=== PATIENT | female | born 1965 | race Caucasian/White ===

== ENCOUNTER 2020-08-05 06:10 | Outpatient (REF) | payer OTHER, SELFPAY ==
[2020-08-05 06:48] LABS: COVID-19 Test Negative (Negative)
== END 2020-08-05 06:11 | disposition home or self-care (01) ==
LOC: HO.LAB 06:10
PROVIDERS: Visit Provider Internal Medicine
DX: Z20.828 Contact with and (suspected) exposure to other viral communicable diseases (principal)
CPT/HCPCS: 87635

== ENCOUNTER 2020-09-20 08:33 | Outpatient (REF) | payer OTHER, SELFPAY ==
[2020-09-20 08:56] LABS: COVID-19 Test Negative (Negative)
== END 2020-09-20 08:34 | disposition home or self-care (01) ==
LOC: HO.EMPCOV 08:33
PROVIDERS: Visit Provider Internal Medicine
DX: Z20.828 Contact with and (suspected) exposure to other viral communicable diseases (principal)
CPT/HCPCS: 87635; C9803

== ENCOUNTER 2020-10-06 15:26 | Outpatient (REF) | payer OTHER, SELFPAY ==
[2020-10-06 17:09] LABS: COVID-19 Test Negative (Negative); IDNOW Serial# 55D5AD1C
== END 2020-10-06 15:27 | disposition home or self-care (01) ==
LOC: HO.LAB 15:26
PROVIDERS: Visit Provider Internal Medicine
DX: Z20.828 Contact with and (suspected) exposure to other viral communicable diseases (principal)
CPT/HCPCS: 87635; C9803

== ENCOUNTER 2020-10-21 09:54 | Outpatient (REF) | payer OTHER, SELFPAY ==
[2020-10-21 10:15] LABS: COVID-19 Test Negative (Negative)
== END 2020-10-21 09:55 | disposition home or self-care (01) ==
LOC: HO.EMPCOV 09:54
PROVIDERS: Visit Provider Internal Medicine
DX: Z20.828 Contact with and (suspected) exposure to other viral communicable diseases (principal)
CPT/HCPCS: 36415; 87635; C9803

== ENCOUNTER 2022-02-22 17:58 | Inpatient (IN) | payer OTHER, SELFPAY ==
--- NOTE | 2022-02-22 | ECG_ITS ---
Test Reason : right sidelung pain Blood Pressure : / mmHG Vent. Rate : 046 BPM Atrial Rate : 046 BPM P-R Int : 204 ms QRS Dur : 132 ms QT Int : 542 ms P-R-T Axes : 056 -51 064 degrees QTc Int : 474 ms Normal sinus rhythm with 2:1 AV block Right bundle branch block Left anterior fascicular block Bifascicular block Left ventricular hypertrophy ( R in aVL , Romhilt-Wills ) Cannot rule out Septal infarct , age undetermined Abnormal ECG No previous ECGs available Referred By: Generic ED Physician Electronically Signed By:JAYCOB SOLIS MD
--- NOTE | ~2022-02-22 | XR_ITS ---
EXAMINATION: XR CHEST CLINICAL INFORMATION: Right-sided pleural effusion COMPARISON: None TECHNIQUE: 2 views of the chest were obtained. FINDINGS: No evidence for an effusion. The lung hayes are felt to be grossly clear. The hilar structures do not appear pathologically enlarged. The cardiac silhouette is within normal limits. XR/XR chest 2V IMPRESSION: No effusion is seen. Lung hayes are grossly clear.
--- NOTE | ~2022-02-22 | CT_ITS ---
EXAMINATION: CT CHEST WITHOUT CONTRAST CLINICAL INFORMATION: Right-sided abdominal pain. Question etiology. COMPARISON: Radiograph dated 02/22/2022 CT abdomen pelvis dated 05/03/2017 TECHNIQUE: Multidetector volumetric CT imaging of the chest was done. Axial MIP volume rendering provided. Sagittal and coronal reformatted images were obtained. This CT examination was performed using dose optimization techniques as appropriate, variously including the following: *Automated exposure control *Adjustment of mA and/or kV according to patient size (this includes techniques or standardized protocols for targeted exams where dose is matched to indication/reason for exam; i.e. extremities or head) *Use of iterative reconstruction technique DLP: 263 mGy-cm FINDINGS: TOOLROOM KEEPER: Clear lungs. LUNGS: No consolidation, pulmonary nodules, or interstitial opacities. Linear scarring vs. atelectasis is evident at the lingula. The trachea and mainstem bronchi are clear. There are multiple small intraluminal opacities within the segmental and subsegmental bronchi of the right lungs bilaterally, associated with mild bronchial wall thickening. No pulmonary emphysema. MEDIASTINUM: Multiple enlarged mediastinal and hilar lymph nodes are identified, most of whichcontain dense calcifications. There is a 1.1 cm right lower paratracheal lymph node which is noncalcified in addition to a 1.1 cm noncalcified right upper paratracheal lymph node. Thyroid gland is unremarkable. Heart is normal in size. No pericardial effusion. Aorta is normal in caliber. PLEURA: There is no pleural effusion. No pleural mass or thickening. AXILLA/CHEST WALL: No lymphadenopathy. There is atrophy of the right supraspinatus and infraspinatus muscles, suggesting a chronic rotator cuff tear. UPPER ABDOMEN: There is a 2 cm water density right hepatic hepatic cysts which is slightly increased as compared to the prior CT from 2017 and of doubtful clinical significance. No recommend imaging follow-up. No acute abnormalities in the upper abdomen. OSSEOUS STRUCTURES: No acute osseous findings. Minimal degenerative spondylosis in the thoracic spine. Minimal degenerative spondylosis is present in the thoracic spine. CT/CT chest wo con IMPRESSION: 1. Multiple small intraluminal opacities in the segmental and subsegmental bronchi likely correspond to areas of mucous plugging. In the setting of mild bronchial wall thickening, this could be due to a mild acute or chronic bronchitis. Otherwise, no acute pulmonary findings. No consolidation. 2. Numerous calcified hilar and mediastinal lymph nodes, most likely the result of prior granulomatous infection.. 3. Chronic right rotator cuff tear. 4. No acute findings in the imaged portion of the right abdomen.
[2022-02-22 18:04] VITALS: BP 151/65; PULSE 52; RESP 20; TEMP 36.7; O2SAT 97; BMI 23.3
[2022-02-22 18:24] LABS: MANUAL DIFF FLAG NO
[2022-02-22 18:27] LABS: Basophils Percent Auto 0.4 % (0-2); Eosinophils Absolute Auto 0.3 X10*3/uL (0.0-0.4); Eosinophils Percent Auto 3.2 % (0-4); Hemoglobin 14.6 g/dl (12.0-16.0); Imm Gran Abs Auto 0.01 X10*3/uL (0.00-0.03); Imm Gran Pct Auto 0.1 % (0.0-0.4); Lymphocytes Absolute Auto 1.8 X10*3/uL (1.2-4.9); Lymphocytes Percent Auto 22.8 % (20-40); Mean Corpuscular HGB Conc 33.2 g/dl (31.0-35.0); Mean Corpuscular Hemoglobin 29.9 pg (27.0-33.0); Mean Corpuscular Volume 90.2 fL (80.0-98.0); Monocytes Absolute Auto 0.8 X10*3/uL (0.1-1.2); Monocytes Percent Auto 9.5 % (2-11); Neutrophils Absolute Auto 5.1 x10*3/uL (2.0-8.3); Platelet Count 278 X10*3/uL (160-400); Red Blood Count 4.88 X10*6/uL (4.20-5.50); Red Cell Distribution Width 11.8 % (11.0-16.0); White Blood Count 7.9 X10*3/uL (4.8-10.8)
--- NOTE | 2022-02-22 18:36 | ED.CHESTPAIN ---
HPI - Chest Pain General Chief Complaint: Dyspnea Stated Complaint: lung pain Time Seen by Provider: 02/22/22 18:15 Source: patient Mode of arrival: ambulatory Limitations: no limitations History of Present Illness HPI narrative: Patient with no significant past medical history noticed right-sided chest pain for last 3 days which increases on deep inspiration has chronic cough with mucoid phlegm no fever no chills no abdominal pain no nausea no vomiting no weight loss no history of PE/DVT in the past Related Data Home Medications Medication Instructions Recorded Confirmed No Known Home Meds 02/22/22 02/22/22 Allergies Allergy/AdvReac Type Severity Reaction Status Date / Time No Known Allergies Allergy Verified 02/22/22 18:37 Review of Systems Review of Systems: Yes all other systems are reviewed and are negative [facility] Social History Social History Advance Directives: No Advance Directives Information Provided: No Physical Exam Vital Signs: Vital Signs: Last Vital Signs Temp 97.9 F 02/22/22 23:17 Pulse 48 L 02/22/22 23:17 Resp 16 02/22/22 23:17 BP 133/64 02/22/22 23:17 Pulse Ox 95 02/22/22 23:17 BMI result Body Mass Index 23.3 Appearance: Alert. Oriented X3. No acute distress. Eyes: No pallor or icterus ENT: Pharynx normal. Oral Mucosa moist Neck: Normal inspection. Neck supple. CVS: Normal heart rate and rhythm. Pulses normal. Respiratory: No respiratory distress. Equal air entry bilateral, no wheezing/rales/rhonchi percussion dullness on the right lower lobe Abdomen: Soft and nontender. Bowel sounds are present, no mass palpable, no CVA tenderness Skin: Skin warm and dry. Normal skin color. Normal skin turgor. Extremities: No lower extremity edema. No calf tenderness Neuro: Oriented X 3. No motor deficit. MDM - Chest Pain MDM Narrative Medical decision making narrative: Patient with 2-1 heart block with right-sided pleuritic chest pain etiology not very clear chest CT showed some mucus plugging will admit for further cardiac workup D-dimer is negative for PE Medical Records Data Attestation: I reviewed the patient's medical records. Lab Data Attestation: I reviewed the patient's lab results. Result diagrams: 02/22/22 18:17 02/22/22 18:17 Labs: Lab Results 02/22/22 02/22/22 02/22/22 Range/Units 18:17 18:17 18:17 WBC 7.9 (4.8-10.8) X10*3/uL RBC 4.88 (4.20-5.50) X10*6/uL Hgb 14.6 (12.0-16.0) g/dl Hct 44.0 (37.0-47.0) % MCV 90.2 (80.0-98.0) fL MCH 29.9 (27.0-33.0) pg MCHC 33.2 (31.0-35.0) g/dl RDW 11.8 (11.0-16.0) % Plt Count 278 (160-400) X10*3/uL MPV 11.0 (9.4-12.3) fL Immature Gran % (Auto) 0.1 (0.0-0.4) % Neut % (Auto) 64.0 (45-73) % Lymph % (Auto) 22.8 (20-40) % [place] % (Auto) 9.5 (2-11) % Eos % (Auto) 3.2 (0-4) % Baso % (Auto) 0.4 (0-2) % Lymph # (Auto) 1.8 (1.2-4.9) X10*3/uL [place] # (Auto) 0.8 (0.1-1.2) X10*3/uL Eos # (Auto) 0.3 (0.0-0.4) X10*3/uL Baso # (Auto) 0.0 (0.0-0.2) X10*3/uL Abs Immat Gran (auto) 0.01 (0.00-0.03) X10*3/uL Absolute Neuts (auto) 5.1 (2.0-8.3) x10*3/uL Absolute Nucleated RBC 0.000 (0.0-0.012) X10*3/uL Nucleated RBC % (auto) 0.0 (0.0-0.2) /100WBC ESR (0-20) MM/HR PT (9.9-13.0) SEC INR (0.9-1.1) APTT (24.1-38.0) SEC D-Dimer High Sensitivty NG/ML Sodium 138 (135-145) mmol/L Potassium 4.2 (3.3-5.1) mmol/L Chloride 108 (96-108) mmol/L Carbon Dioxide 23 (22-29) mmol/L Anion Gap 11 L (12-20) BUN 19 H (9-16) mg/dL Creatinine 0.77 (0.5-1.4) mg/dL Estim Creat Clear Calc 72.5 Estimated GFR > 60 Random Glucose 103 (60-115) mg/dL Calcium 9.6 (8.4-10.2) mg/dL Magnesium 1.8 (1.6-2.6) mg/dL Total Bilirubin 1.1 H (0.0-1.0) mg/dL Direct Bilirubin 0.4 (0.0-0.5) mg/dL AST 24 (5-31) U/L ALT 25 (0-31) U/L Alkaline Phosphatase 67 (39-117) U/L Troponin I High Sens (<3.5-17.0) ng/L Total Protein 7.1 (6.5-8.0) g/dL Albumin 4.3 (3.5-5.0) g/dL TSH 1.13 (0.32-4.0) uIU/mL COVID-19 (JASVIR) (Negative) COVID-19 Clin Com Influenza Type A (MARTHA) Negative (Negative) Influenza Type B (MARTHA) Negative (Negative) Influenza A & B Note See Note 02/22/22 02/22/22 02/22/22 Range/Units 18:17 18:17 19:10 WBC (4.8-10.8) X10*3/uL RBC (4.20-5.50) X10*6/uL Hgb (12.0-16.0) g/dl Hct (37.0-47.0) % MCV (80.0-98.0) fL MCH (27.0-33.0) pg MCHC (31.0-35.0) g/dl RDW (11.0-16.0) % Plt Count (160-400) X10*3/uL MPV (9.4-12.3) fL Immature Gran % (Auto) (0.0-0.4) % Neut % (Auto) (45-73) % Lymph % (Auto) (20-40) % [place] % (Auto) (2-11) % Eos % (Auto) (0-4) % Baso % (Auto) (0-2) % Lymph # (Auto) (1.2-4.9) X10*3/uL [place] # (Auto) (0.1-1.2) X10*3/uL Eos # (Auto) (0.0-0.4) X10*3/uL Baso # (Auto) (0.0-0.2) X10*3/uL Abs Immat Gran (auto) (0.00-0.03) X10*3/uL Absolute Neuts (auto) (2.0-8.3) x10*3/uL Absolute Nucleated RBC (0.0-0.012) X10*3/uL Nucleated RBC % (auto) (0.0-0.2) /100WBC ESR 3 (0-20) MM/HR PT 11.1 (9.9-13.0) SEC INR 1.0 (0.9-1.1) APTT 33.2 (24.1-38.0) SEC D-Dimer High Sensitivty < 150 NG/ML Sodium (135-145) mmol/L Potassium (3.3-5.1) mmol/L Chloride (96-108) mmol/L Carbon Dioxide (22-29) mmol/L Anion Gap (12-20) BUN (9-16) mg/dL Creatinine (0.5-1.4) mg/dL Estim Creat Clear Calc Estimated GFR Random Glucose (60-115) mg/dL Calcium (8.4-10.2) mg/dL Magnesium (1.6-2.6) mg/dL Total Bilirubin (0.0-1.0) mg/dL Direct Bilirubin (0.0-0.5) mg/dL AST (5-31) U/L ALT (0-31) U/L Alkaline Phosphatase (39-117) U/L Troponin I High Sens (<3.5-17.0) ng/L Total Protein (6.5-8.0) g/dL Albumin (3.5-5.0) g/dL TSH (0.32-4.0) uIU/mL COVID-19 (JASVIR) Negative (Negative) COVID-19 Clin Com See Note Influenza Type A (MARTHA) (Negative) Influenza Type B (MARTHA) (Negative) Influenza A & B Note 02/22/22 Range/Units 19:10 WBC (4.8-10.8) X10*3/uL RBC (4.20-5.50) X10*6/uL Hgb (12.0-16.0) g/dl Hct (37.0-47.0) % MCV (80.0-98.0) fL MCH (27.0-33.0) pg MCHC (31.0-35.0) g/dl RDW (11.0-16.0) % Plt Count (160-400) X10*3/uL MPV (9.4-12.3) fL Immature Gran % (Auto) (0.0-0.4) % Neut % (Auto) (45-73) % Lymph % (Auto) (20-40) % [place] % (Auto) (2-11) % Eos % (Auto) (0-4) % Baso % (Auto) (0-2) % Lymph # (Auto) (1.2-4.9) X10*3/uL [place] # (Auto) (0.1-1.2) X10*3/uL Eos # (Auto) (0.0-0.4) X10*3/uL Baso # (Auto) (0.0-0.2) X10*3/uL Abs Immat Gran (auto) (0.00-0.03) X10*3/uL Absolute Neuts (auto) (2.0-8.3) x10*3/uL Absolute Nucleated RBC (0.0-0.012) X10*3/uL Nucleated RBC % (auto) (0.0-0.2) /100WBC ESR (0-20) MM/HR PT (9.9-13.0) SEC INR (0.9-1.1) APTT (24.1-38.0) SEC D-Dimer High Sensitivty NG/ML Sodium (135-145) mmol/L Potassium (3.3-5.1) mmol/L Chloride (96-108) mmol/L Carbon Dioxide (22-29) mmol/L Anion Gap (12-20) BUN (9-16) mg/dL Creatinine (0.5-1.4) mg/dL Estim Creat Clear Calc Estimated GFR Random Glucose (60-115) mg/dL Calcium (8.4-10.2) mg/dL Magnesium (1.6-2.6) mg/dL Total Bilirubin (0.0-1.0) mg/dL Direct Bilirubin (0.0-0.5) mg/dL AST (5-31) U/L ALT (0-31) U/L Alkaline Phosphatase (39-117) U/L Troponin I High Sens 10.8 (<3.5-17.0) ng/L Total Protein (6.5-8.0) g/dL Albumin (3.5-5.0) g/dL TSH (0.32-4.0) uIU/mL COVID-19 (JASVIR) (Negative) COVID-19 Clin Com Influenza Type A (MARTHA) (Negative) Influenza Type B (MARTHA) (Negative) Influenza A & B Note ECG Data ECG #1: Attestation: I personally reviewed and interpreted this ECG as follows: Interpretation: Sinus rhythm with heart rate 46 beats per minute bifascicular block , 2:1 AV block no acute ST T wave changes no acute ischemia Discharge Plan Discharge Clinical Impression: Chest pain, Heart block AV second degree Patient Disposition: Admitted As Inpatient
[2022-02-22 18:39] LABS: Anion Gap 11 (12-20); Blood Urea Nitrogen 19 mg/dL (9-16); Calcium 9.6 mg/dL (8.4-10.2); Carbon Dioxide 23 mmol/L (22-29); Chloride 108 mmol/L (96-108); Creatinine Clr Calc Pharmacy 72.5; Estimated Glomerular Filt Rate > 60; Glucose Random 103 mg/dL (60-115); Potassium 4.2 mmol/L (3.3-5.1); Sodium 138 mmol/L (135-145)
[2022-02-22 18:41] LABS: Influenza A Negative (Negative); Influenza B2 Negative (Negative)
[2022-02-22 18:45] LABS: COVID-19 Test Negative (Negative); IDNOW Serial# 16C4AD1C
[2022-02-22 18:48] VITALS: BP 136/50; PULSE 46; RESP 18; O2SAT 97
[2022-02-22 18:59] LABS: Alanine Aminotransferase 25 U/L (0-31); Albumin Level 4.3 g/dL (3.5-5.0); Alkaline Phosphatase 67 U/L (39-117); Aspartate Amino Transferase 24 U/L (5-31); Bilirubin Direct 0.4 mg/dL (0.0-0.5); Bilirubin Total 1.1 mg/dL (0.0-1.0); Magnesium 1.8 mg/dL (1.6-2.6); Total Protein 7.1 g/dL (6.5-8.0)
[2022-02-22 19:19] LABS: Thyroid Stimulating Hormone 1.13 uIU/mL (0.32-4.0)
[2022-02-22 19:21] LABS: Prothrombin Time 11.1 SEC (9.9-13.0)
[2022-02-22 19:24] LABS: Partial Thromboplastin Time 33.2 SEC (24.1-38.0)
[2022-02-22 19:26] LABS: D Dimer High Sensitivity < 150 NG/ML
[2022-02-22 19:32] LABS: Erythrocyte Sedimentation Rate 3 MM/HR (0-20)
[2022-02-22 19:34] LABS: Troponin-I High Sensitivity 10.8 ng/L (<3.5-17.0)
[2022-02-22] MEDS: Ketorolac Tromethamine 30 MG/ML VIAL IVPUSH (19:57)
[2022-02-22 20:43] VITALS: BP 134/53; PULSE 44; RESP 20; TEMP 36.4; O2SAT 97
--- NOTE | 2022-02-22 21:57 | PHA.MEDREC ---
Pharmacy Consult ? Medication Reconciliation Pharmacy has completed the medication reconciliation.
--- NOTE | 2022-02-22 22:39 | PM.IMHP ---
History of Present Illness Date of Service: 02/22/22 Chief Complaint: Chest pain 56-year-old female with no significant past medical history presented to the hospital with a chief complaint of chest pain. Patient reports that since last Sunday she has been having chest pain located on the right lateral chest wall, worsens with deep inspiration; denies any heavy weightlifting. 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 Denies any numbness tingling or focal weakness. Denies any radiation of the pain. Pain is sharp in nature. Denies any associated lightheadedness dizziness nausea vomiting or diaphoresis. Denies any cough or sputum production. Denies any history of syncopal episodes. Review of all other systems is negative except mentioned above ER course: Per ER team patient noted to have right lateral chest pain; reproducible; D-dimer negative; CT chest showed findings concerning for acute on chronic bronchitis.; on vitals noted to have bradycardia with heart rate in 40s. EKG showed second-degree AV block. Discussed with Cardiology-recommended admission telemetry. [facility] Social History Advance Directives: No Advance Directives Information Provided: No Meds Allergies Allergy/AdvReac Type Severity Reaction Status Date / Time No Known Allergies Allergy Verified 02/22/22 18:37 Home Medications Medication Instructions Recorded Confirmed Last Taken Type No Known Home Meds 02/22/22 02/22/22 Unknown History Physical Exam Vital Signs and Narrative: Vital Signs: Last Vital Signs Temp 97.6 F 02/22/22 20:43 Pulse 44 L 02/22/22 20:43 Resp 20 02/22/22 20:43 BP 134/53 L 02/22/22 20:43 Pulse Ox 97 02/22/22 20:43 BMI result Body Mass Index 23.3 Gen: Appears be in no acute distress HEENT: NCAT, Moist mucosa. Pulmonary: Vesicular breath sounds, fair air entry; right lateral chest wall pain is reproducible CVS: Normal S1-S2 Abdomen: BS+, Soft, Nontender Extremities: Warm well perfused Neuro: Alert and awake. Results Labs CBC and Chem 7: 02/22/22 18:17 02/22/22 18:17 Labs: Laboratory Results - last 24 hr 02/22/22 02/22/22 02/22/22 18:17 18:17 18:17 MCV 90.2 MCH 29.9 MCHC 33.2 RDW 11.8 Plt Count 278 MPV 11.0 Immature Gran % (Auto) 0.1 Neut % (Auto) 64.0 Lymph % (Auto) 22.8 [place] % (Auto) 9.5 Eos % (Auto) 3.2 Baso % (Auto) 0.4 Lymph # (Auto) 1.8 [place] # (Auto) 0.8 Eos # (Auto) 0.3 Baso # (Auto) 0.0 Abs Immat Gran (auto) 0.01 Absolute Neuts (auto) 5.1 Absolute Nucleated RBC 0.000 Nucleated RBC % (auto) 0.0 ESR PT INR APTT D-Dimer High Sensitivty Anion Gap 11 L Estim Creat Clear Calc 72.5 Estimated GFR > 60 Random Glucose 103 Calcium 9.6 Magnesium 1.8 Total Bilirubin 1.1 H Direct Bilirubin 0.4 AST 24 ALT 25 Alkaline Phosphatase 67 Troponin I High Sens Total Protein 7.1 Albumin 4.3 TSH 1.13 COVID-19 (JASVIR) COVID-19 Clin Com Influenza Type A (MARTHA) Negative Influenza Type B (MARTHA) Negative Influenza A & B Note See Note 02/22/22 02/22/22 02/22/22 18:17 18:17 19:10 MCV MCH MCHC RDW Plt Count MPV Immature Gran % (Auto) Neut % (Auto) Lymph % (Auto) [place] % (Auto) Eos % (Auto) Baso % (Auto) Lymph # (Auto) [place] # (Auto) Eos # (Auto) Baso # (Auto) Abs Immat Gran (auto) Absolute Neuts (auto) Absolute Nucleated RBC Nucleated RBC % (auto) ESR 3 PT 11.1 INR 1.0 APTT 33.2 D-Dimer High Sensitivty < 150 Anion Gap Estim Creat Clear Calc Estimated GFR Random Glucose Calcium Magnesium Total Bilirubin Direct Bilirubin AST ALT Alkaline Phosphatase Troponin I High Sens Total Protein Albumin TSH COVID-19 (JASVIR) Negative COVID-19 Clin Com See Note Influenza Type A (MARTHA) Influenza Type B (MARTHA) Influenza A & B Note 02/22/22 19:10 MCV MCH MCHC RDW Plt Count MPV Immature Gran % (Auto) Neut % (Auto) Lymph % (Auto) [place] % (Auto) Eos % (Auto) Baso % (Auto) Lymph # (Auto) [place] # (Auto) Eos # (Auto) Baso # (Auto) Abs Immat Gran (auto) Absolute Neuts (auto) Absolute Nucleated RBC Nucleated RBC % (auto) ESR PT INR APTT D-Dimer High Sensitivty Anion Gap Estim Creat Clear Calc Estimated GFR Random Glucose Calcium Magnesium Total Bilirubin Direct Bilirubin AST ALT Alkaline Phosphatase Troponin I High Sens 10.8 Total Protein Albumin TSH COVID-19 (JASVIR) COVID-19 Clin Com Influenza Type A (MARTHA) Influenza Type B (MARTHA) Influenza A & B Note Imaging Radiologist's Impressions: Impressions Chest X-Ray 02/22/22 18:41 IMPRESSION: No effusion is seen. Lung hayes are grossly clear. Chest CT 02/22/22 20:30 IMPRESSION: 1. Multiple small intraluminal opacities in the segmental and subsegmental bronchi likely correspond to areas of mucous plugging. In the setting of mild bronchial wall thickening, this could be due to a mild acute or chronic bronchitis. Otherwise, no acute pulmonary findings. No consolidation. 2. Numerous calcified hilar and mediastinal lymph nodes, most likely the result of prior granulomatous infection.. 3. Chronic right rotator cuff tear. 4. No acute findings in the imaged portion of the right abdomen. Assessment and Plan (1) Chest pain: Status: Acute (2) Heart block AV second degree: Status: Acute Plan 56-year-old female with no significant past medical history presented to the hospital with a chief complaint of right-sided chest pain Right-sided chest pain: Atypical in nature. Reproducible. Worsens with deep inspiration. Likely musculoskeletal. Pain control. Lidoderm patch. EKG nonischemic. Troponin 10.8--> repeat pending Acute on chronic bronchitis: Will give the patient on doxycycline. Second-degree AV block: Patient denies any lightheadedness dizziness or any syncopal episodes. Incidental finding. Will monitor on telemetry Pacer pads Cardiology was notified Echocardiogram Will obtain TSH, Lyme titers. DVT prophylaxis: Subcu heparin Code status: Full code Quality Stroke Does the patient have a stroke diagnosis?: No VTE Prior VTE?: No VTE Risk Level:: Medical - moderate - high VTE Device Contraindication: Treatment Not Indicated VTE Drug Contraindication: N/A - Med Ordered
[2022-02-22 23:17] VITALS: BP 133/64; PULSE 48; RESP 16; TEMP 36.6; O2SAT 95
[2022-02-22] MEDS: Melatonin 3 MG TABLET 6 MG PO (23:27)
[2022-02-22] MEDS: Heparin Sodium,Porcine 5,000 UNIT/ML VIAL 5000 UNIT SUBCUT (23:28)
[2022-02-22] MEDS: 0.9 % Sodium Chloride Flush 3 ML SYRINGE IVFLUSH (23:31)
[2022-02-22 23:58] LABS: Thyroid Stimulating Hormone 1.21 uIU/mL (0.32-4.0)
[2022-02-23] MEDS: HYDROcodone Bit/Acetam 5/325 TABLET 1 TAB PO ×2 (01:07→04:59)
--- NOTE | 2022-02-23 02:46 | PC.NURSE ---
Pt resting on stretcher NAD Sinus gissel on monitor with HR high 30s-40s Denies lightheadedness/dizziness/CP Will continue to monitor
--- NOTE | 2022-02-23 04:11 | ECG_ITS ---
Test Reason : bradycardia Blood Pressure : / mmHG Vent. Rate : 041 BPM Atrial Rate : 041 BPM P-R Int : 110 ms QRS Dur : 154 ms QT Int : 582 ms P-R-T Axes : 000 093 -82 degrees QTc Int : 480 ms Normal sinus rhythm with A-V dissociation with ventricular/fascicular rhythm Rightward axis Abnormal ECG When compared with ECG of 22-FEB-2022 18:05, (RBBB and left anterior fascicular block) is no longer Present Questionable change in initial forces of Anterior leads Ventricular/fascicular rhythm present Referred By: Generic ED Physician Electronically Signed By:JAYCOB SOLIS MD
--- NOTE | 2022-02-23 04:12 | ECG_ITS ---
Test Reason : LOW HEART RATE Blood Pressure : / mmHG Vent. Rate : 042 BPM Atrial Rate : 042 BPM P-R Int : 072 ms QRS Dur : 138 ms QT Int : 560 ms P-R-T Axes : 000 097 -81 degrees QTc Int : 467 ms Marked sinus bradycardia with short MD Non-specific intra-ventricular conduction block Inferior infarct (cited on or before 22-FEB-2022) Possible Anterolateral infarct (cited on or before 22-FEB-2022) Abnormal ECG When compared with ECG of 23-FEB-2022 04:17, QRS duration has decreased Serial changes of Anterior infarct Present Referred By: Generic ED Physician Electronically Signed By:
[2022-02-23 04:31] VITALS: BP 139/65; PULSE 40; RESP 16; O2SAT 98
[2022-02-23 04:49] LABS: MANUAL DIFF FLAG NO
[2022-02-23 04:54] VITALS: BP 152/61; PULSE 41; RESP 16; TEMP 36.7; O2SAT 97
[2022-02-23 04:57] LABS: Basophils Percent Auto 0.4 % (0-2); Eosinophils Absolute Auto 0.4 X10*3/uL (0.0-0.4); Eosinophils Percent Auto 4.7 % (0-4); Hemoglobin 14.5 g/dl (12.0-16.0); Imm Gran Abs Auto 0.01 X10*3/uL (0.00-0.03); Imm Gran Pct Auto 0.1 % (0.0-0.4); Lymphocytes Absolute Auto 2.8 X10*3/uL (1.2-4.9); Lymphocytes Percent Auto 31.6 % (20-40); Mean Corpuscular HGB Conc 33.7 g/dl (31.0-35.0); Mean Corpuscular Hemoglobin 30.6 pg (27.0-33.0); Mean Corpuscular Volume 90.7 fL (80.0-98.0); Monocytes Percent Auto 11.2 % (2-11); Neutrophils Absolute Auto 4.6 x10*3/uL (2.0-8.3); Platelet Count 240 X10*3/uL (160-400); Red Blood Count 4.74 X10*6/uL (4.20-5.50); Red Cell Distribution Width 11.7 % (11.0-16.0); White Blood Count 8.9 X10*3/uL (4.8-10.8)
--- NOTE | 2022-02-23 05:10 | PC.NURSE ---
Repeat EKG completed for bradycardia and shown to Dr. Jasso. Dr. Millan ordered repeat RT sided EKG. RT side EKG completed. Dr. Millan made aware. Per Dr. Millan, no new orders, awaiting lab results Pt c/o RT sided CP. Denies lightheadedness/dizziness VSS Will continue to monitor
[2022-02-23 05:16] LABS: Anion Gap 10 (12-20); Blood Urea Nitrogen 23 mg/dL (9-16); Calcium 9.5 mg/dL (8.4-10.2); Carbon Dioxide 27 mmol/L (22-29); Chloride 107 mmol/L (96-108); Creatinine Clr Calc Pharmacy 79.7; Estimated Glomerular Filt Rate > 60; Glucose Random 91 mg/dL (60-115); Magnesium 1.8 mg/dL (1.6-2.6); Potassium 4.4 mmol/L (3.3-5.1); Sodium 140 mmol/L (135-145)
[2022-02-23 05:19] LABS: Troponin-I High Sensitivity 12.9 ng/L (<3.5-17.0)
[2022-02-23 06:00] VITALS: BP 164/56; PULSE 42; RESP 16; TEMP 36.5; O2SAT 95
[2022-02-23] MEDS: Heparin Sodium,Porcine 5,000 UNIT/ML VIAL 5000 UNIT SUBCUT (06:16)
--- NOTE | 2022-02-23 07:00 | CA_ITS ---
Transthoracic Echocardiogram Patient (Last, First, Middle): Ladi Enriquez, Gender: Female Date of : 1965 Age: 56 Procedure Date: 02/23/2022 Procedure Type: Transthoracic Echocardiogram Location: ER Height: 165.1 cm Weight: 63.5 kg BSA: 1.70 m2 Heart Rate: bpm BP: 164 / 56 mmHg Instructional Consultant: MANJIT Stack MD: Romeo Millan MD Capacity Planning Engineer: Balaji Cao MD Symptoms: advanced AV block Study Quality: Fair ECG Rhythm: Bradycardia Conclusions: - 1. Normal LV systolic function with impaired relaxation filling pattern 2. Trivial aortic regurgitation 3. Normal RV systolic pressure 4. No pericardial effusion Findings Left Ventricle Normal left ventricular size, thickness, and systolic function. The visually estimated ejection fraction is between 60-65%. Spectral Doppler is indicative of an impaired relaxation filling pattern. E/E prime ratio is <8, consistent with normal filling pressures. Right Ventricle Normal right ventricular cavity size and systolic function. Atria Both atria are normal in size. There is no evidence of interatrial shunt. Aortic Valve Normal aortic valve structure and function. There is no aortic valve stenosis. There is trace (trivial) aortic valve regurgitation. Mitral Valve Normal mitral valve structure and function. There is trace mitral valve regurgitation. There is no mitral valve stenosis. Pulmonic Valve The pulmonic valve was not well visualized. Tricuspid Valve Likely normal tricuspid valve structure and function. There is trace tricuspid valve regurgitation. The right ventricular systolic pressure is normal. The right ventricular systolic pressure is 21 mmHg. Normal right atrial pressure. There is no evidence of pulmonary hypertension. Great Vessels All visible segments of the aorta are normal in size. The pulmonary artery was not well visualized. Venous The inferior vena cava is normal in size and collapses greater than 50% with inspiration. Pericardium/Pleural There is no evidence of pericardial effusion. Prior Study Comparison No prior study available for comparison. Measurements 2D Linear Measurements IVSd: 1.18 0.6-0.9/0.6-1.0 cm LVIDd: 4.62 3.9-5.3/4.2-5.9 cm LVIDd Index: 2.72 2.4-3.2/2.2-3.1 cm/m2 LVIDs: 2.61 2.0-3.6 cm LVPWd: 0.81 0.7-1.1 cm LA Diam: 3.10 2.7-3.8/3.0-4.0 cm LAIDs Index: 1.82 1.5-2.3 cm/m2 LV Mass: 197.12 67-162/88-224 g LV Mass Index: 115.95 43-95/49-115 g/m2 LVOT Diam: 2.00 3.0+(-)1.3 cm 2D Systolic Function EF 4C: 60.10 >55% EF 2C: 60.70 >55% EF BiP: 60.20 >55% Mitral Valve MV Pk E: 0.59 MV PK A: 0.92 MV Decel Time: 307.00 E/A: 0.60 E'Lateral: 11.00 E'Medial: 10.60 E/E' Med: 5.60 E/E' Lat: 5.40 PHT: 90.00 MVA PHT: 2.44 Decel [place]: 1.94 Aortic Valve AoV Pk [place]: 1.58 AoV Mn Puma: 1.07 AoV VTI: 0.39 AoV Pk Grad: 10.00 Aov Mn Grad: 5.00 TEENA Cont.VTI: 2.15 LVOT LVOT Pk [place]uma: 1.11 LVOT Mn Puma: 0.75 LVOT VTI: 0.27 LVOT Pk Grad: 5.00 LVOT Mn Grad: 3.00 LVOT Diam: 2.00 LVOT Area: 3.14 Diastolic Function MV Pk E: 0.59 MV Pk A: 0.92 E/A: 0.60 E'Medial: 10.60 E/E' Med: 5.60 E' Laterial: 11.00 E/E' Lat: 5.40 Right Ventricle TAPSE (mm): 30.10 TVS' Puma: 12.50 Tricuspid Valve TR Pk [place]uma: 2.12 TR Pk Grad: 18.00 RA Press: 3.00 RVSP: 21.00 Great Vessels Aorta Sinus of Valsalva: 3.07 2.0-3.[address] [place]: 2.90 1.7-3.4 cm Ao Asc: 2.90 2.1-3.4 cm Ao Arch: 2.50 Updated in Other Vendor System with Status of Final Balaji Cao MD electronically signed on 02/23/2022 12:26:25 PM with status of Final
--- NOTE | 2022-02-23 09:53 | PC.NURSE ---
CALL RECEIVED FROM [facility] AND [facility] PT TX LINE @ THIS TIME THEY WILL CALL WITH ROOM ASSIGNMENT AND THAT IT WILL BE AWHILE DUE TO BEDS BEING BACKED UP. BUT TO REASSURE US THAT THEY ARE AWARE OF THE NEED AND WILL CALL US BACK WITH ROOM ASSIGNMENT WHEN AVAILABLE.
--- NOTE | 2022-02-23 09:55 | P.CONCA_ITS ---
History of Present Illness History of Present Illness Date of Service: 02/23/22 Requesting physician: Leslye Cabrera Consult reason: other (AV block and bradycardia) Chief complaint: Chest Pain Narrative: I was requested to see Ladi in cardiology consultation today due to bradycardia. 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 She has prior history of COVID and recently she was having recurrent right-sided chest discomfort which was worse with deep breathing. Symptoms persisted and then size she decided to come to the emergency room. Over the last few weeks she has been getting symptoms of exertional fatigue although she thought that this was related to or illness. She has had no symptoms of lightheadedness or syncope. When she came to the emergency room, she was noted to be in sinus rhythm with 2 is to 1 av block with bifascicular block. Subsequent EKG shows sinus rhythm with AV dissociation with ventricular escape rhythm. She had no symptoms during these episodes and at rest she is feeling very comfortable. Blood pressure is stable. Because of pleuritic chest pain she had a CT scan of the chest done which showed numerous calcified hilar and mediastinal lymph nodes suggestive of prior granulomatous infection and also showed mucus plugging in the set of mild bronchial wall thickening. She has been diagnosed with bronchitis based on the clinical findings and pleuritic chest pain. She denies any prior history of asthma or sarcoidosis. she has no prior cardiovascular history. No history of hypertension, diabetes, coronary artery disease. Review of Systems Constitutional: Constitutional: Reports no additional constitutional c omplaints Eyes: Eyes: Reports no additional eye complaints Cardiovascular: Cardiovascular: Reports chest pain ( Right-sided pleuritic), Denies lightheadedness, Denies Loss of Consciousness and Denies dyspnea Respiratory: Respiratory: Denies dyspnea and Reports wheezing Gastrointestinal: Gastrointestinal: Reports no additional gastrointestinal complaints Genitourinary: Genitourinary: Reports no additional female genitourinary complaints Musculoskeletal: Musculoskeletal: Reports no additional musculoskeletal complaints Integumentary/Breasts: Skin/Breast: Reports system reviewed and no additional complaints, except as docu Neurologic: Reports system reviewed and no additional complaints, except as documented Psychiatric: Psychiatric: Reports no additional psychiatric complaints Endocrine: Endocrine: Reports no additional endocrine complaints Hematologic/Lymphatic: Hematologic/Lymphatic: Reports no additional hematologi c/lymphatic complaints Allergic/Immunologic: Allergic/Immunologic: Reports no additional allergic/immunologic complaints and Reports wheezing [facility] Family History Family history: reviewed and not pertinent Social History Social History Advance Directives: No Advance Directives Information Provided: No Meds Allergies Allergy/AdvReac Type Severity Reaction Status Date / Time No Known Allergies Allergy Verified 02/22/22 18:37 Active Medications: Current Medications Acetaminophen (Acetaminophen 325 Mg Tablet) 650 mg PO Q6H PRN PRN Reason: Pain, Mild (Pain Scale 1-3) Hydrocodone Bitart/Acetaminophen (Hydrocodone Bit/Acetam 5/325 Tablet) 1 tab PO Q4H PRN PRN Reason: Pain, Moderate (Pain Scale 4-6 Last Admin: 02/23/22 04:59 Dose: 1 tab Documented by: Doxycycline Hyclate (Doxycycline Hyclate 100 Mg Tablet) 100 mg PO Q12H [facility] Last Admin: 02/22/22 23:27 Dose: 100 mg Documented by: Heparin Sodium (Porcine) (Heparin Sodium,Porcine 5,000 Unit/Ml Vial) 5,000 unit SUBCUT Q8H [facility] Last Admin: 02/23/22 06:16 Dose: 5,000 unit Documented by: Melatonin (Melatonin 3 Mg Tablet) 6 mg PO BEDTIME PRN PRN Reason: Insomnia Last Admin: 02/22/22 23:27 Dose: 6 mg Documented by: Senna (Sennosides 8.6 Mg Tablet) 17.2 mg PO BEDTIME PRN PRN Reason: Constipation Sodium Chloride (0.9 % Sodium Chloride Flush 3 Ml Syringe) 3 ml IVFLUSH QSHIFT [facility] Last Admin: 02/23/22 09:12 Dose: Not Given Documented by: Home Medications Medication Instructions Recorded Confirmed Last Taken Type No Known Home Meds 02/22/22 02/22/22 Unknown History Physical Exam Vital Signs: Vital Signs: Last Vital Signs Temp 97.7 F 02/23/22 06:00 Pulse 42 L 02/23/22 06:00 Resp 16 02/23/22 06:00 BP 164/56 H 02/23/22 06:00 Pulse Ox 95 02/23/22 06:00 BMI result Body Mass Index 23.3 Const: General: cooperative, comfortable, no acute distress, alert and awake Nutritional Appearance: thin Orientation/consciousness: patient oriented x3 Limitations: no limitations HEENT: Head: Yes normocephalic and Yes atraumatic Neck: Neck: Yes trachea midline, Yes supple and Yes no JVD Chest: Chest palpation & inspection: normal inspection of the chest Resp: Effort & Inspection: normal respiratory effort Auscultation: wheezes expiratory wheezes and throughout Cardio: Jugular venous distension: no JVD Palpation: normal PMI Rate: bradycardic Rhythm: regular rhythm Heart sounds: S1 normal heart sound present, S2 normal heart sound present, no click, no gallops and no murmurs GI: Auscultation: normal bowel sounds Skin: General skin exam: no rashes or lesions noted Neuro: General: patient oriented x3 and no focal motor deficits Extrem: General: Yes no clubbing, cyanosis or edema Psych: Appearance: grossly normal Objective Labs and Meds Result diagrams: 02/23/22 04:44 02/23/22 04:44 Lab results: Laboratory Results - last 24 hr 02/22/22 02/22/22 02/22/22 18:17 18:17 18:17 WBC 7.9 RBC 4.88 Hgb 14.6 Hct 44.0 MCV 90.2 MCH 29.9 MCHC 33.2 RDW 11.8 Plt Count 278 MPV 11.0 Immature Gran % (Auto) 0.1 Neut % (Auto) 64.0 Lymph % (Auto) 22.8 [place] % (Auto) 9.5 Eos % (Auto) 3.2 Baso % (Auto) 0.4 Lymph # (Auto) 1.8 [place] # (Auto) 0.8 Eos # (Auto) 0.3 Baso # (Auto) 0.0 Abs Immat Gran (auto) 0.01 Absolute Neuts (auto) 5.1 Absolute Nucleated RBC 0.000 Nucleated RBC % (auto) 0.0 ESR PT INR APTT D-Dimer High Sensitivty Sodium 138 Potassium 4.2 Chloride 108 Carbon Dioxide 23 Anion Gap 11 L BUN 19 H Creatinine 0.77 Estim Creat Clear Calc 72.5 Estimated GFR > 60 Random Glucose 103 Calcium 9.6 Magnesium 1.8 Total Bilirubin 1.1 H Direct Bilirubin 0.4 AST 24 ALT 25 Alkaline Phosphatase 67 Troponin I High Sens Total Protein 7.1 Albumin 4.3 TSH 1.13 COVID-19 (JASVIR) COVID-19 Clin Com Influenza Type A (MARTHA) Negative Influenza Type B (MARTHA) Negative Influenza A & B Note See Note 02/22/22 02/22/22 02/22/22 18:17 18:17 19:10 WBC RBC Hgb Hct MCV MCH MCHC RDW Plt Count MPV Immature Gran % (Auto) Neut % (Auto) Lymph % (Auto) [place] % (Auto) Eos % (Auto) Baso % (Auto) Lymph # (Auto) [place] # (Auto) Eos # (Auto) Baso # (Auto) Abs Immat Gran (auto) Absolute Neuts (auto) Absolute Nucleated RBC Nucleated RBC % (auto) ESR 3 PT 11.1 INR 1.0 APTT 33.2 D-Dimer High Sensitivty < 150 Sodium Potassium Chloride Carbon Dioxide Anion Gap BUN Creatinine Estim Creat Clear Calc Estimated GFR Random Glucose Calcium Magnesium Total Bilirubin Direct Bilirubin AST ALT Alkaline Phosphatase Troponin I High Sens Total Protein Albumin TSH COVID-19 (JASVIR) Negative COVID-19 Clin Com See Note Influenza Type A (MARTHA) Influenza Type B (MARTHA) Influenza A & B Note 02/22/22 02/22/22 02/22/22 19:10 23:03 23:03 WBC RBC Hgb Hct MCV MCH MCHC RDW Plt Count MPV Immature Gran % (Auto) Neut % (Auto) Lymph % (Auto) [place] % (Auto) Eos % (Auto) Baso % (Auto) Lymph # (Auto) [place] # (Auto) Eos # (Auto) Baso # (Auto) Abs Immat Gran (auto) Absolute Neuts (auto) Absolute Nucleated RBC Nucleated RBC % (auto) ESR PT INR APTT D-Dimer High Sensitivty Sodium Potassium Chloride Carbon Dioxide Anion Gap BUN Creatinine Estim Creat Clear Calc Estimated GFR Random Glucose Calcium Magnesium Total Bilirubin Direct Bilirubin AST ALT Alkaline Phosphatase Troponin I High Sens 10.8 12.0 Total Protein Albumin TSH 1.21 COVID-19 (JASVIR) COVID-19 Clin Com Influenza Type A (MARTHA) Influenza Type B (MARTHA) Influenza A & B Note 02/23/22 02/23/22 02/23/22 04:44 04:44 04:44 WBC 8.9 RBC 4.74 Hgb 14.5 Hct 43.0 MCV 90.7 MCH 30.6 MCHC 33.7 RDW 11.7 Plt Count 240 MPV 11.0 Immature Gran % (Auto) 0.1 Neut % (Auto) 52.0 Lymph % (Auto) 31.6 [place] % (Auto) 11.2 H Eos % (Auto) 4.7 H Baso % (Auto) 0.4 Lymph # (Auto) 2.8 [place] # (Auto) 1.0 Eos # (Auto) 0.4 Baso # (Auto) 0.0 Abs Immat Gran (auto) 0.01 Absolute Neuts (auto) 4.6 Absolute Nucleated RBC 0.000 Nucleated RBC % (auto) 0.0 ESR PT INR APTT D-Dimer High Sensitivty Sodium 140 Potassium 4.4 Chloride 107 Carbon Dioxide 27 Anion Gap 10 L BUN 23 H Creatinine 0.70 Estim Creat Clear Calc 79.7 Estimated GFR > 60 Random Glucose 91 Calcium 9.5 Magnesium 1.8 Total Bilirubin Direct Bilirubin AST ALT Alkaline Phosphatase Troponin I High Sens 12.9 Total Protein Albumin TSH COVID-19 (JASVIR) COVID-19 Clin Com Influenza Type A (MARTHA) Influenza Type B (MARTHA) Influenza A & B Note Imaging Radiologist's impression: Impressions Chest X-Ray 02/22/22 18:41 IMPRESSION: No effusion is seen. Lung hayes are grossly clear. Chest CT 02/22/22 20:30 IMPRESSION: 1. Multiple small intraluminal opacities in the segmental and subsegmental bronchi likely correspond to areas of mucous plugging. In the setting of mild bronchial wall thickening, this could be due to a mild acute or chronic bronchitis. Otherwise, no acute pulmonary findings. No consolidation. 2. Numerous calcified hilar and mediastinal lymph nodes, most likely the result of prior granulomatous infection.. 3. Chronic right rotator cuff tear. 4. No acute findings in the imaged portion of the right abdomen. Assessment and Plan (1) Symptomatic advanced heart block: Status: Acute patient comes for symptoms of pleuritic chest pain and is noted to have bronchitis and subsequently incidentally noted to have advanced second-degree AV block with bifascicular block suggestive of advanced AV conduction system disease. She does have symptoms of exertional fatigue but no symptoms of lightheadedness or syncope. However given her EKG I think she needs pacing therapy. Given her age I thing RV pacing would be detrimental in the long run causing pacing related cardiomyopathy. Therefore she would require specific type of pacemaker which is done at [facility] which is left bundle-branch pacing which is only done at [facility]. Discussed with who is renal medicine specialist at [facility] any agrees. Cause of advanced AV block is unclear but given her chest CT finding there is likelihood of sarcoidosis. She will probably require further workup. Will obtain a bedside echocardiogram and if she has LV ejection fraction less than 35% then will require biventricular ICD placement. This was discussed with her. She will eventually require ischemic workup and a cardiac MRI. Continue treat her bronchitis with bronchodilators and steroids and possibly antibiotics. Will leave it up to the primary team. Will follow with her as an outpatient Procedures Date of Service Date of Service: 02/23/22
--- NOTE | 2022-02-23 10:58 | P.DS_ITS ---
DS: Providers Provider Date of Service: 02/23/22 Date of admission: 02/22/22 22:37 Date of discharge: 02/23/22 Primary care physician: René Kumari MD Consults: 02/22/22 22:37 Consult to Cardiology Routine Consulting Provider: Balaji Cao Reason for consultation: AV block; chest pain Attending physician on discharge: Nabil Vieyra Discharging clinician: Leslye Cabrera DS: Diagnosis Discharge Diagnosis (1) Symptomatic advanced heart block: Status: Acute DS: Summary Hospital Course Hospital Course: From H&P on day of admission 56-year-old female with no significant past medical history presented to the hospital with a chief complaint of chest pain.? Patient reports that since last Sunday she has been having chest pain located on the right lateral chest wall, worsens with deep inspiration; denies any heavy weightlifting.? 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 Denies any numbness tingling or focal weakness.? Denies any radiation of the pain.? Pain is sharp in nature.? Denies any associated lightheadedness dizziness nausea vomiting or diaphoresis.? Denies any cough or sputum production.? Denies any history of syncopal episodes.? Review of all other systems is negative except mentioned above ER course: Per ER team patient noted to have right lateral chest pain; reproducible; D- dimer negative; CT chest showed findings concerning for acute on chronic bronchitis.; on vitals noted to have bradycardia with heart rate in 40s.? EKG showed second-degree AV block.? Discussed with Cardiology-recommended admission telemetry.? Admitted for further management Hospital Course: Patient was admitted to the hospital for Management of chest pain and advanced heart block. HS troponin was checked and was flat at 10.8, 12.0, 12.9. Chest CT was obtained which showed question of bronchitis as well as hilar and mediastinal lymphadenopathy. She was started on doxycycline for treatment of bronchitis. She has remained on room air with no episodes of hypoxia. At rest she is asymptomatic. For her heart block she was seen in consultation by Cardiology who recommended transfer to [facility] for LBBB pacemaker. her heart rate has remained in the 40s. She is hemodynamically stable, with BP in 150s. Given her chest CT findings there was also concern of possible sarcoidosis which will likely require further workup. Time Spent with Patient Time attestation: Total time spent providing and/or coordinating discharge services: Discharge coordination time: Greater than 30 minutes Quality: Safe Use of Opioids Does Pt have an Active Cancer Diagnosis on the Problem List?: No Quality: Stroke Does the patient have a stroke diagnosis?: No Physical Exam Vital Signs: Vital Signs: Last Vital Signs Temp 97.7 F 02/23/22 06:00 Pulse 42 L 02/23/22 06:00 Resp 16 02/23/22 06:00 BP 164/56 H 02/23/22 06:00 Pulse Ox 95 02/23/22 06:00 BMI result Body Mass Index 23.3 Const: General: cooperative, comfortable, alert and awake Nutritional Appearance: average body habitus Resp: Effort & Inspection: normal respiratory effort and able to speak in complete sentences Cardio: Rate: bradycardic GI: Palpation (GI): Soft to palpation DS: Data Data Completed and Pending Labs on day of discharge: Laboratory Results - last 24 hr 02/22/22 02/22/22 02/22/22 18:17 18:17 18:17 WBC 7.9 RBC 4.88 Hgb 14.6 Hct 44.0 MCV 90.2 MCH 29.9 MCHC 33.2 RDW 11.8 Plt Count 278 MPV 11.0 Immature Gran % (Auto) 0.1 Neut % (Auto) 64.0 Lymph % (Auto) 22.8 [place] % (Auto) 9.5 Eos % (Auto) 3.2 Baso % (Auto) 0.4 Lymph # (Auto) 1.8 [place] # (Auto) 0.8 Eos # (Auto) 0.3 Baso # (Auto) 0.0 Abs Immat Gran (auto) 0.01 Absolute Neuts (auto) 5.1 Absolute Nucleated RBC 0.000 Nucleated RBC % (auto) 0.0 ESR PT INR APTT D-Dimer High Sensitivty Sodium 138 Potassium 4.2 Chloride 108 Carbon Dioxide 23 Anion Gap 11 L BUN 19 H Creatinine 0.77 Estim Creat Clear Calc 72.5 Estimated GFR > 60 Random Glucose 103 Calcium 9.6 Magnesium 1.8 Total Bilirubin 1.1 H Direct Bilirubin 0.4 AST 24 ALT 25 Alkaline Phosphatase 67 Troponin I High Sens Total Protein 7.1 Albumin 4.3 TSH 1.13 COVID-19 (JASVIR) COVID-19 Clin Com Influenza Type A (MARTHA) Negative Influenza Type B (MARTHA) Negative Influenza A & B Note See Note 02/22/22 02/22/22 02/22/22 18:17 18:17 19:10 WBC RBC Hgb Hct MCV MCH MCHC RDW Plt Count MPV Immature Gran % (Auto) Neut % (Auto) Lymph % (Auto) [place] % (Auto) Eos % (Auto) Baso % (Auto) Lymph # (Auto) [place] # (Auto) Eos # (Auto) Baso # (Auto) Abs Immat Gran (auto) Absolute Neuts (auto) Absolute Nucleated RBC Nucleated RBC % (auto) ESR 3 PT 11.1 INR 1.0 APTT 33.2 D-Dimer High Sensitivty < 150 Sodium Potassium Chloride Carbon Dioxide Anion Gap BUN Creatinine Estim Creat Clear Calc Estimated GFR Random Glucose Calcium Magnesium Total Bilirubin Direct Bilirubin AST ALT Alkaline Phosphatase Troponin I High Sens Total Protein Albumin TSH COVID-19 (JASVIR) Negative COVID-19 Clin Com See Note Influenza Type A (MARTHA) Influenza Type B (MARTHA) Influenza A & B Note 02/22/22 02/22/22 02/22/22 19:10 23:03 23:03 WBC RBC Hgb Hct MCV MCH MCHC RDW Plt Count MPV Immature Gran % (Auto) Neut % (Auto) Lymph % (Auto) [place] % (Auto) Eos % (Auto) Baso % (Auto) Lymph # (Auto) [place] # (Auto) Eos # (Auto) Baso # (Auto) Abs Immat Gran (auto) Absolute Neuts (auto) Absolute Nucleated RBC Nucleated RBC % (auto) ESR PT INR APTT D-Dimer High Sensitivty Sodium Potassium Chloride Carbon Dioxide Anion Gap BUN Creatinine Estim Creat Clear Calc Estimated GFR Random Glucose Calcium Magnesium Total Bilirubin Direct Bilirubin AST ALT Alkaline Phosphatase Troponin I High Sens 10.8 12.0 Total Protein Albumin TSH 1.21 COVID-19 (JASVIR) COVID-19 Clin Com Influenza Type A (MARTHA) Influenza Type B (MARTHA) Influenza A & B Note 02/23/22 02/23/22 02/23/22 04:44 04:44 04:44 WBC 8.9 RBC 4.74 Hgb 14.5 Hct 43.0 MCV 90.7 MCH 30.6 MCHC 33.7 RDW 11.7 Plt Count 240 MPV 11.0 Immature Gran % (Auto) 0.1 Neut % (Auto) 52.0 Lymph % (Auto) 31.6 [place] % (Auto) 11.2 H Eos % (Auto) 4.7 H Baso % (Auto) 0.4 Lymph # (Auto) 2.8 [place] # (Auto) 1.0 Eos # (Auto) 0.4 Baso # (Auto) 0.0 Abs Immat Gran (auto) 0.01 Absolute Neuts (auto) 4.6 Absolute Nucleated RBC 0.000 Nucleated RBC % (auto) 0.0 ESR PT INR APTT D-Dimer High Sensitivty Sodium 140 Potassium 4.4 Chloride 107 Carbon Dioxide 27 Anion Gap 10 L BUN 23 H Creatinine 0.70 Estim Creat Clear Calc 79.7 Estimated GFR > 60 Random Glucose 91 Calcium 9.5 Magnesium 1.8 Total Bilirubin Direct Bilirubin AST ALT Alkaline Phosphatase Troponin I High Sens 12.9 Total Protein Albumin TSH COVID-19 (JASVIR) COVID-19 Clin Com Influenza Type A (MARTHA) Influenza Type B (MARTHA) Influenza A & B Note Imaging CT scan - chest: Radiologist's impression: ITS Impressions Chest X-Ray 02/22/22 18:41 IMPRESSION: No effusion is seen. Lung hayes are grossly clear. Chest CT 02/22/22 20:30 IMPRESSION: 1. Multiple small intraluminal opacities in the segmental and subsegmental bronchi likely correspond to areas of mucous plugging. In the setting of mild bronchial wall thickening, this could be due to a mild acute or chronic bronchitis. Otherwise, no acute pulmonary findings. No consolidation. 2. Numerous calcified hilar and mediastinal lymph nodes, most likely the result of prior granulomatous infection.. 3. Chronic right rotator cuff tear. 4. No acute findings in the imaged portion of the right abdomen. Discharge Plan Discharge Patient Disposition: [facility] Discharge Diagnosis: Advanced heart block Referrals: [facility] [Outside] - 1 Week René Kumari MD [Primary Care Provider] - 1 Week Discharge Medications: New doxycycline hyclate 100 mg Tablet 100 mg PO Q12H 5 Days Qty: 10 0RF Discharge Orders: Discharge Order (Routine); Ordered 02/23/22 Ordered By: Leslye Cabrera Activity on Discharge: bedrest Stand Alone Forms: Patient Portal Discharge page Care Plan Goals: see below Health Concerns: Advanced heart block hilar and mediastinal lymphadenopathy possible bronchitis Plan of Treatment: transfer to [facility] for further workup and LBBB pacemaker Assessment: see discharge summary Discharge Date/Time: 02/23/22 14:39
--- NOTE | 2022-02-23 11:04 | MHC.CM.PN ---
Met with patient in regards to discharge planning. Patient lives with her boyfriend, ambulates independently and had no services prior to coming to the hospital. 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 No services anticipated to be needed because patient is not homebound. PCP verified. Patient denies having a HCP. Information provided. Patient not interested in completing one at this time. Patient received 3 Moderna vaccines. Patient will be transferred to [facility] for higher level of care via ALS. She is aware and agreeable to this discharge plan. Continue to monitor for d/c needs.
--- NOTE | 2022-02-23 12:25 | PC.NURSE ---
pt resting quietly no apparent distress. she denies chest pain, sob/headache/dizziness. vss. pt up to use restroom. pt to be transferred [place] [facility], room assignment pending. will continue to monitor.
--- NOTE | 2022-02-23 12:54 | PC.NURSE ---
@ 12:53PM CALL RECEIVED FROM [facility] PT TX LINE WITH ROOM ASSIGNMENT MASS [employer] 7, BED 12 RN TO RN [phone] STEPHEN ELLISON
--- NOTE | 2022-02-23 13:24 | PC.NURSE ---
Nurse to Nurse report given to ERIBERTO Patterson at [facility].
[2022-02-27 12:46] LABS: Lyme Abs Screen <0.90 index
== END 2022-02-23 14:39 | disposition short-term general hospital (02) | DRG 144 ==
LOC: HO.ED 21:32 → HO.EDOVER 22:45
PROVIDERS: Admitting Provider Hospitalist; Emergency Provider Internal Medicine; PCP Internal Medicine; Visit Provider Physician Assistant Medical
DX: J20.9 Acute bronchitis, unspecified (principal); I44.1 Atrioventricular block, second degree; R00.1 Bradycardia, unspecified; J42 Unspecified chronic bronchitis; Z86.16 Personal history of COVID-19; Z20.822 Contact with and (suspected) exposure to COVID-19; Z98.51 Tubal ligation status; Z79.899 Other long term (current) drug therapy
CPT/HCPCS: 36415; 71046; 71250; 80048; 80076; 83735; 84443; 84484; 85025; 85379; 85610; 85652; 85730; 86617; 86618; 87502; 87635; 93005; 93306; 96374; 99285; J1885

== ENCOUNTER → 2022-03-14 07:40 | Outpatient (REF) | payer OTHER, SELFPAY ==
--- NOTE | ~2022-03-14 | NM_ITS ---
Lexiscan Myocardial perfusion study Indication: Heart block, assess for coronary disease and ischemia Technique: The patient was brought in for a Lexiscan perfusion study on 03/14/2022 and was injected 0.4 mg of Lexiscan intravenously. Within a minute of this injection 25 mCi of sestamibi was given intravenously. Images were obtained using the SPECT gamma camera interlaced with the gating device. Images were obtained in supine position. Resting perfusion study was performed on 03/15/2022. Patient was administered 25 mCi of sestamibi intravenously at rest. Images were then obtained in supine position. Total DLP 82 mGy-cm. Images were processed with the software and compared side to side in short axis, horizontal long axis and vertical long axis views. Findings: Raw acquisition reviewed. Overall study quality is suboptimal. The stress perfusion study showed diminished tracer uptake in the distal part of inferior wall. There is also adjacent GI tracer uptake. CT attenuation corrected images are of poor quality. The gated study shows mildly diminished LV systolic function with calculated LVEF of 49%. LV cavity is normal in size. The gated study, cannot assess inferior wall; mild hypokinesis in the distal anteroseptal wall; otherwise unremarkable. Resting study shows mildly diminished tracer uptake in the distal part of inferior wall but not well visualized. There is also adjacent GI tracer uptake. CT attenuation corrected images are of poor quality. Gating at rest reveals distal anteroseptal hypokinesis; otherwise unremarkable; LVEF 48%. Overall study quality suboptimal. Fixed distal inferior defect but overall inferior wall not well visualized; otherwise no clear defects. NM/NM cardiolite stress test Impression: 1. Myocardial perfusion imaging study is of suboptimal image quality. Fixed distal inferior defect. Overall, inferior wall is not well visualized. No gross defects elsewhere. If clinically indicated, consider further workup with alternate modality. 2. Gated LVEF is 49% during stress and 48% during rest. 3. Transient ischemic dilatation not present. EKG component of the test reported separately.
--- NOTE | 2022-03-14 08:05 | CA_ITS ---
Acquisition Time: 2022-03-14 08:35:50 Total Exercise Time: 00:02:00 Test Indications: Abnormal ECG Medications: NONE Protocol: LEXISCAN Max HR: 090 BPM 55% of Pred: 163 BPM Max BP: */* mmHG Max Work Load: 1.0 METS Pharmacological stress test with Lexiscan injection, while sitting, without anginal symptoms, without arrythmia, with normotensive response to injection, with nondiagnostic EKG for ischemia. In recovery she was treated with Aminophylline 75mg IVP to reverse Lexican. Nuclear images pending. Test reviewed with Dr Cao Referred By: Balaji Cao Overread By: DU CALERO
== END ==
LOC: HO.CARD 07:40
PROVIDERS: PCP Internal Medicine; Visit Provider Internal Medicine Cardiovascular Disease
DX: R07.9 Chest pain, unspecified (principal); I44.1 Atrioventricular block, second degree
CPT/HCPCS: 78452; 93017; A9500; J0280; J2785

== ENCOUNTER 2022-03-16 08:28 | Outpatient (REF) | payer OTHER, SELFPAY ==
--- NOTE | ~2022-03-16 | MM_ITS ---
EXAMINATION: MM SCREENING DIGITAL BREAST TOMOSYNTHESIS, BILATERAL CLINICAL INFORMATION: Screening. Asymptomatic. The lifetime risk of breast cancer based on the Tyrer-Cuzick Model is 12%. COMPARISON: Mammography: 10/31/2019, 07/22/2018, 03/26/2017 TECHNIQUE: Digital breast tomosynthesis is performed in both the craniocaudal and mediolateral oblique views along with computer-aided detection (CAD). Synthesized 2D images are generated from the tomosynthesis. FINDINGS: There are scattered areas of fibroglandular density (ACR BI-RADS breast composition Category b). There are no significant masses, abnormal calcifications, or other abnormalities. Parenchymal pattern is similar to prior studies. The axilla and skin contours are unremarkable. MM/MM tomosynthesis screening BI IMPRESSION: There are no significant changes from prior study. ASSESSMENT: BI-RADS 1: Negative RECOMMENDATION: Routine annual mammography screening. This patient's information was entered into a reminder system with a target due date for their next mammogram.
== END 2022-03-16 08:29 | disposition home or self-care (01) ==
LOC: HO.MAMMO 08:28
PROVIDERS: PCP Internal Medicine; Visit Provider Internal Medicine
DX: Z12.31 Encounter for screening mammogram for malignant neoplasm of breast (principal)
CPT/HCPCS: 77063; 77067

== ENCOUNTER → 2022-04-24 14:54 | Outpatient (BNVA) | payer OTHER, SELFPAY | PROVIDERS: PCP Internal Medicine; Referring Provider Internal Medicine; Visit Provider Internal Medicine Cardiovascular Disease | DX: Z45.018 Encounter for adjustment and management of other part of cardiac pacemaker (principal); I44.1 Atrioventricular block, second degree | CPT/HCPCS: 93005; 93280 ==

== ENCOUNTER 2022-10-17 16:17 | Outpatient (REF) | payer OTHER, SELFPAY ==
[2022-10-17 17:35] LABS: Influenza A PCR NEGATIVE (Negative); Influenza B PCR NEGATIVE (Negative); Resp Syncy Virus RNA Qual PCR NEGATIVE (Negative); SARS COV2 PCR INHOUSE NEGATIVE (Negative)
== END 2022-10-17 16:18 | disposition home or self-care (01) ==
LOC: HO.LAB 16:17
PROVIDERS: PCP Internal Medicine; Visit Provider Physician Assistant
DX: Z20.822 Contact with and (suspected) exposure to COVID-19 (principal); R05.9 Cough, unspecified
CPT/HCPCS: 0241U

== ENCOUNTER 2023-04-23 13:02 | Outpatient (AMB) | payer OTHER, SELFPAY ==
[2023-04-23 13:06] VITALS: BP 124/80; PULSE 94; BMI 24.6
--- NOTE | 2023-04-23 13:06 | MHC.OFFVIS ---
Intake Vital Signs 04/23/23 13:06 Height 5 ft 5 in Weight 147 lb 11.355 oz BMI 24.6 BP 124/80 Blood Pressure Location Lt brachial Position Sitting Pulse 94 Intake Visit Reasons: 1yr follow up w/ Medtronic device ck, after echo Intake Note: 1 year follow-up with medtroic and ekg after echo feeling good Glass Lathe Operator Required: No Allergies No Known Allergies Allergy (Verified 03/09/22 13:11) Medication List - Last Reconciled 04/23/23 by Balaji Cao MD nitrofurantoin monohyd/m-cryst 100 mg caps PO HPI HPI Comments History of Present Illness Details Ladi comes for follow-up. She says she occasionally feels palpitations. She drinks energy drinks. Denies any prolonged irregular heartbeat or palpitations. Denies lightheadedness, syncope denies any exertional chest pain or shortness of breath. No orthopnea, PND, leg edema. Comes for pacemaker evaluation. [facility] Medical History Cardiac pacemaker in situ Current smoker Familial hypercholesterolemia Insomnia, unspecified Menopausal syndrome Surgical History H/O LEEP History of tubal ligation Family History Father No problems noted. Mother No problems noted. 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 Cognitive needs: No Hearing needs: No Vision needs: Yes (glasses) Review of Systems Const Denies chills, Denies fatigue, Denies fever(s), Denies frequent falls, Denies weakness, Denies weight gain and Denies weight loss ENT Denies dizziness Card Denies chest pain, Denies leg edema, Denies lightheadedness, Denies palpitations, Denies dyspnea, Denies dyspnea on exertion, Denies orthopnea and Denies other (loss of consciousness) Resp Denies cough, Denies dyspnea and Denies dyspnea on exertion GI Denies hematochezia and Denies change in stool character Musc Denies abnormal gait, Denies muscle weakness, Denies numbness, Denies radiating pain into limb and Denies tingling Neuro Denies abnormal gait, Denies dizziness, Denies frequent falls, Denies numbness, Denies tingling and Denies weakness Endo Denies fatigue and Denies palpitations Physical Exam Vital Signs: Last Vital Signs Pulse 94 04/23/23 13:06 BP 124/80 04/23/23 13:06 BMI result Body Mass Index 24.6 Const General: cooperative, comfortable, no acute distress, alert and awake Nutritional Appearance: average body habitus Orientation/consciousness: patient oriented x3 Neck Neck: Yes trachea midline, Yes supple and Yes no JVD Resp Effort & Inspection: normal respiratory effort Auscultation: clear to auscultation bilaterally Cardio Jugular venous distension: no JVD Palpation: normal PMI Rate: regular rate Rhythm: regular rhythm Heart sounds: S1 normal heart sound present, S2 normal heart sound present, no click, no gallops, no murmurs and no rubs GI Auscultation: normal bowel sounds Skin General skin exam: no rashes or lesions noted Neuro General: patient oriented x3 and no focal motor deficits Extrem General: Yes no clubbing, cyanosis or edema Office Procedures Cardiac Device Check Cardiac Device Check Details: Dual-chamber Medtronic pacemaker in place. Programmed in DDD at 60 beats per minute. Minimal atrial pacing. Ventricular pacing 100% time. One episode of nonsustained VT noted. One episode of 3 minutes of atrial fibrillation noted. Battery life is excellent pacing thresholds are stable. Pacing lead impedance is stable. Atrial ventricular sensing is excellent [id number] Cardiac Device Check, pacemaker dual lead Procedure code (CPT) selection complete EKG Details: EKG shows atrially sensed, ventricular paced rhythm with QRS duration 132 milliseconds with left bundle morphology [id number], Complete Assessment & Plan Assessment & Plan (1) Symptomatic advanced heart block: Code(s): I44.1 - Atrioventricular block, second degree Plan: Symptomatic advanced AV block status post dual-chamber pacemaker with ventricular pacer dependent. Patient had normal structure of the heart prior to after pacemaker implantation. Now and noticed to have nonsustained VT. Given persistent ventricular pacing need to assess for development of pacing induced cardiomyopathy. Will check for an echocardiogram in near future. (2) Cardiac arrhythmia: Code(s): I49.9 - Cardiac arrhythmia, unspecified Plan: Cardiac arrhythmias noted on pacer telemetry. Predominantly asymptomatic. Avoid cardiac stimulants especially energy drinks. Will monitor the cardiac telemetry every 3 months. She has brief burden of atrial fibrillation. Will continue monitor. Does not require oral anticoagulation at this point time given low burden of atrial fibrillation. Will avoid pharmacotherapy unless she continues to have symptomatic arrhythmias. Echocardiogram as above. Follow up in the clinic in 1 year's time, sooner p.r.n.. Thank you for allowing me to partake in her care Coding Level of Care Code Est Pt Level 4 (35057) Diagnoses Symptomatic advanced heart block I44.1 Cardiac arrhythmia I49.9 CPT Codes Cardiac Device Check - Cardiac Device 2: [id number] Cardiac Device Check, pacemaker dual lead ([id number]) EKG - CPT: 54659-[id number], Complete ([id number])
== END 2023-04-23 13:26 | disposition home or self-care (01) ==
PROVIDERS: Visit Provider Internal Medicine Cardiovascular Disease
DX: I44.1 Atrioventricular block, second degree (principal); I49.9 Cardiac arrhythmia, unspecified
CPT/HCPCS: 93010; 93280; 99214

== ENCOUNTER → 2023-04-23 13:02 | Outpatient (BNVA) | payer OTHER, SELFPAY | PROVIDERS: Visit Provider Internal Medicine Cardiovascular Disease | DX: Z45.018 Encounter for adjustment and management of other part of cardiac pacemaker (principal); I44.1 Atrioventricular block, second degree; I49.9 Cardiac arrhythmia, unspecified | CPT/HCPCS: 93005; 93280 ==

== ENCOUNTER → 2023-05-22 08:47 | Outpatient (REF) | payer OTHER, SELFPAY ==
--- NOTE | 2023-05-22 08:55 | CA_ITS ---
Transthoracic Echocardiogram Patient (Last, First, Middle): Ladi Enriquez, Gender: Female Date of : 1965 Age: 57 Procedure Date: 05/22/2023 Procedure Type: Transthoracic Echocardiogram Location: OP Height: 165.1 cm Weight: 65.77 kg BSA: 1.73 m2 Heart Rate: bpm BP: 110 / 70 mmHg Plating Inspector: TO Referring MD: Balaji Cao MD Symptoms: I49.9 - Cardiac arrhythmia, unspecified Study Quality: Adequate ECG Rhythm: Sinus Conclusions: - The left ventricular systolic function is normal. The calculated ejection fraction is 59% by biplane method. - No obvious valvular pathology seen on this study. Findings Left Ventricle Normal left ventricular cavity size. The left ventricular systolic function is normal. The calculated ejection fraction is 59% by biplane method. There is no evidence of regional wall motion abnormalities. Diastolic function is normal for age. There is mild septal asymmetric hypertrophy. LV peak GLS 19%. Right Ventricle Normal right ventricular cavity size and systolic function. There is a pacemaker wire seen in the right ventricle. Atria Both atria are normal in size. Aortic Valve There is a normal trileaflet aortic valve. There is no aortic valve stenosis. There is no aortic valve regurgitation. Mitral Valve The mitral valve appears normal. There is no mitral valve regurgitation. There is no mitral valve stenosis. Pulmonic Valve The pulmonic valve is likely normal. Tricuspid Valve Normal tricuspid valve structure. There is trace tricuspid valve regurgitation. There is no evidence of pulmonary hypertension. Great Vessels The asc aorta is normal in size. Venous The inferior vena cava is normal in size and collapses greater than 50% with inspiration. Pericardium/Pleural There is no evidence of pericardial effusion. Prior Study Comparison No significant change compared to prior study dated: 02/23/2022. Recommendations, Care & Conclusions No obvious valvular pathology seen on this study. Measurements 2D Linear Measurements IVSd: 1.23 0.6-0.9/0.6-1.0 cm LVIDd: 4.34 3.9-5.3/4.2-5.9 cm LVIDd Index: 2.51 2.4-3.2/2.2-3.1 cm/m2 LVIDs: 3.04 2.0-3.6 cm LVPWd: 0.73 0.7-1.1 cm LA Diam: 2.70 2.7-3.8/3.0-4.0 cm LAIDs Index: 1.56 1.5-2.3 cm/m2 LV Mass: 174.66 67-162/88-224 g LV Mass Index: 100.96 43-95/49-115 g/m2 LVOT Diam: 2.10 3.0+(-)1.3 cm 2D Systolic Function EF 4C: 59.20 >55% EF 2C: 59.90 >55% EF BiP: 59.30 >55% Mitral Valve MV Pk E: 0.61 MV PK A: 0.68 MV Decel Time: 171.00 E/A: 0.90 E'Lateral: 8.49 E'Medial: 6.64 E/E' Med: 9.20 E/E' Lat: 7.20 PHT: 50.00 MVA PHT: 4.40 Decel Stonewall: 3.58 Aortic Valve AoV Pk Puma: 1.32 AoV Mn Puma: 0.90 AoV VTI: 0.21 AoV Pk Grad: 7.00 Aov Mn Grad: 4.00 TEENA Cont.VTI: 2.63 LVOT LVOT Pk Puma: 0.90 LVOT Mn Puma: 0.58 LVOT VTI: 0.16 LVOT Pk Grad: 3.00 LVOT Mn Grad: 2.00 LVOT Diam: 2.10 LVOT Area: 3.46 Diastolic Function MV Pk E: 0.61 MV Pk A: 0.68 E/A: 0.90 E'Medial: 6.64 E/E' Med: 9.20 E' Laterial: 8.49 E/E' Lat: 7.20 Right Ventricle TAPSE (mm): 22.30 TVS' Puma: 13.30 Tricuspid Valve TR Pk Puma: 1.91 TR Pk Grad: 15.00 RA Press: 3.00 RVSP: 18.00 Great Vessels Aorta Sinus of Valsalva: 3.00 2.0-3.[address] [place]: 2.70 1.7-3.4 cm Ao Asc: 3.00 2.1-3.4 cm Updated in Other Vendor System with Status of Final Reji Mobley MD electronically signed on 05/23/2023 12:08:58 PM with status of Final
== END ==
LOC: HO.CARD 08:47
PROVIDERS: PCP Internal Medicine; Visit Provider Internal Medicine Cardiovascular Disease
DX: I49.9 Cardiac arrhythmia, unspecified (principal)
CPT/HCPCS: 93306; 93356

== ENCOUNTER → 2023-05-22 08:55 | Outpatient (BNV) | payer OTHER, SELFPAY | PROVIDERS: PCP Internal Medicine; Visit Provider Internal Medicine | DX: I49.9 Cardiac arrhythmia, unspecified (principal) | CPT/HCPCS: 93306 ==

== ENCOUNTER → 2023-06-17 23:59 | Outpatient (BNV) | payer OTHER, SELFPAY ==
--- NOTE | 2023-06-19 10:22 | MHC.OFFVIS ---
Intake Intake Visit Reasons: Remote Device Check- Medtronic Allergies No Known Allergies Allergy (Verified 03/09/22 13:11) PFSH Medical History Cardiac pacemaker in situ Current smoker Familial hypercholesterolemia Insomnia, unspecified Menopausal syndrome Surgical History H/O LEEP History of tubal ligation Family History Father No problems noted. Mother No problems noted. 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 Pacemaker function is adequate [id number] Cardiac Device Interrogation, pacemaker Procedure code (CPT) selection complete Coding Level of Care Code Procedure Only Diagnoses CPT Codes Cardiac Device Check - Cardiac Device 12: [id number] Cardiac Device Interrogation, pacemaker ([id number])
== END ==
PROVIDERS: PCP Internal Medicine; Visit Provider Internal Medicine Cardiovascular Disease
DX: I44.1 Atrioventricular block, second degree (principal); Z95.0 Presence of cardiac pacemaker
CPT/HCPCS: 93294

== ENCOUNTER → 2023-09-17 23:59 | Outpatient (BNV) | payer OTHER, SELFPAY ==
--- NOTE | 2023-09-17 16:08 | A.OFFVIS_ITS ---
Intake Intake Visit Reasons: Remote Device Check- Medtronic Allergies No Known Allergies Allergy (Verified 03/09/22 13:11) [facility], [facility] Medical History (Updated 09/13/23 @ 17:58 by Peyton Flores NP-C) Cardiac pacemaker in situ Menopausal syndrome Current smoker Familial hypercholesterolemia Insomnia, unspecified Surgical History H/O LEEP History of tubal ligation Family History Father No problems noted. Mother No problems noted. 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 Pacemaker function is adequate. Patient ventricularly pacer dependent [id number] Cardiac Device Interrogation, pacemaker Procedure code (CPT) selection complete Assessment & Plan Assessment & Plan (1) Cardiac pacemaker in situ: Comment: Medtronic dual-chamber pacemaker placed, 02/23/2022 for symptomatic advanced AV block, left bundle-branch block pacing Code(s): Z95.0 - Presence of cardiac pacemaker Plan: See procedure note Coding Level of Care Code Procedure Only Diagnoses Cardiac pacemaker in situ Z95.0 CPT Codes Cardiac Device Check - Cardiac Device 12: [id number] Cardiac Device Interrogation, pacemaker ([id number])
== END ==
PROVIDERS: PCP Internal Medicine; Visit Provider Internal Medicine Cardiovascular Disease
DX: I44.1 Atrioventricular block, second degree (principal); Z95.0 Presence of cardiac pacemaker
CPT/HCPCS: 93294

== ENCOUNTER 2023-11-20 06:22 | Outpatient (REF) | payer OTHER, SELFPAY ==
--- NOTE | ~2023-11-20 | XR_ITS ---
EXAMINATION: XR CHEST CLINICAL INFORMATION: Presence of cardiac pacemaker. COMPARISON: None available. TECHNIQUE: 2 views of the chest were obtained. FINDINGS: No significant abnormality is noted involving the heart, lungs, mediastinum, bony thorax or soft tissues. There is a dual pacer electrode in the right atrium and right ventricle. XR/XR chest 2V IMPRESSION: Unremarkable chest examination.
[2023-11-20 08:04] LABS: Anion Gap 12 (12-20); Blood Urea Nitrogen 23 mg/dL (9-16); Calcium 8.9 mg/dL (8.4-10.2); Carbon Dioxide 28 mmol/L (22-29); Chloride 105 mmol/L (96-108); Estimated Glomerular Filt Rate > 60; Glucose Random 96 mg/dL (60-115); Potassium 3.8 mmol/L (3.3-5.1); Sodium 141 mmol/L (135-145)
== END 2023-11-20 06:23 | disposition home or self-care (01) ==
LOC: HO.LAB 06:22
PROVIDERS: PCP Internal Medicine; Visit Provider Nurse Practitioner Family
DX: I49.9 Cardiac arrhythmia, unspecified (principal); Z95.0 Presence of cardiac pacemaker
CPT/HCPCS: 36415; 71046; 80048

== ENCOUNTER → 2023-12-19 23:59 | Outpatient (BNV) | payer OTHER, SELFPAY ==
--- NOTE | 2023-12-19 15:44 | MHC.OFFVIS ---
Intake Intake Visit Reasons: Remote Device Check- Medtronic Allergies No Known Allergies Allergy (Verified 03/09/22 13:11) [facility] Medical History (Updated 09/13/23 @ 17:58 by Peyton Flores NP-C) Cardiac pacemaker in situ Menopausal syndrome Current smoker Familial hypercholesterolemia Insomnia, unspecified Surgical History H/O LEEP History of tubal ligation Family History Father No problems noted. Mother No problems noted. 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 Pacemaker function is adequate. Patient ventricularly pacer dependent [id number] Cardiac Device Interrogation, pacemaker Procedure code (CPT) selection complete Assessment & Plan Assessment & Plan (1) Cardiac pacemaker in situ: Comment: Medtronic dual-chamber pacemaker placed, 02/23/2022 for symptomatic advanced AV block, left bundle-branch block pacing Code(s): Z95.0 - Presence of cardiac pacemaker Plan: See above Coding Level of Care Code Procedure Only Diagnoses Cardiac pacemaker in situ Z95.0 CPT Codes Cardiac Device Check - Cardiac Device 12: [id number] Cardiac Device Interrogation, pacemaker ([id number])
== END ==
PROVIDERS: PCP Internal Medicine; Visit Provider Internal Medicine Cardiovascular Disease
DX: I44.1 Atrioventricular block, second degree (principal); Z95.0 Presence of cardiac pacemaker
CPT/HCPCS: 93294

== ENCOUNTER 2024-01-27 21:32 | Emergency (ER) | payer OTHER, SELFPAY ==
--- NOTE | 2024-01-27 | ECG_ITS ---
Test Reason : chest pain Blood Pressure : / mmHG Vent. Rate : 086 BPM Atrial Rate : 086 BPM P-R Int : 188 ms QRS Dur : 134 ms QT Int : 416 ms P-R-T Axes : 054 -51 040 degrees QTc Int : 497 ms Atrial-sensed ventricular-paced rhythm Abnormal ECG When compared with ECG of 23-FEB-2022 04:43, Electronic ventricular pacemaker has replaced Sinus rhythm Vent. rate has increased BY 43 BPM Referred By: Generic ED Physician Electronically Signed By:DAVIN CARNEY
--- NOTE | ~2024-01-27 | XR_ITS ---
EXAMINATION: XR CHEST CLINICAL INFORMATION: Left sided chest pain. COMPARISON: Chest radiograph dated 11/20/2023. TECHNIQUE: 2 views of the chest were obtained. FINDINGS: Left pectoral pacemaker leads are unchanged in position. The trachea is in normal anatomic position. Heart size is normal. The lungs are clear. No pleural effusion or pneumothorax. No acute osseous abnormality. XR/XR chest 2V IMPRESSION: Stable appearance of the heart and lungs. No active disease.
[2024-01-27 21:39] VITALS: BP 146/45; PULSE 85; RESP 16; TEMP 37.6; O2SAT 95; BMI 25.0
[2024-01-27 22:04] LABS: Hematocrit 39.5 % (37.0-47.0); Hemoglobin 13.4 g/dl (12.0-16.0); Mean Corpuscular HGB Conc 33.9 g/dl (31.0-35.0); Mean Corpuscular Hemoglobin 30.7 pg (27.0-33.0); Mean Corpuscular Volume 90.6 fL (80.0-98.0); Mean Platelet Volume 10.5 fL (9.4-12.3); Platelet Count 292 X10*3/uL (160-400); Red Blood Count 4.36 X10*6/uL (4.20-5.50); Red Cell Distribution Width 11.7 % (11.0-16.0); White Blood Count 7.1 X10*3/uL (4.8-10.8)
[2024-01-27 22:12] LABS: Alanine Aminotransferase 21 U/L (0-31); Albumin Level 4.1 g/dL (3.5-5.0); Alkaline Phosphatase 70 U/L (39-117); Anion Gap 14 (12-20); Aspartate Amino Transferase 22 U/L (5-31); Bilirubin Total 0.5 mg/dL (0.0-1.0); Blood Urea Nitrogen 23 mg/dL (9-16); Carbon Dioxide 25 mmol/L (22-29); Chloride 107 mmol/L (96-108); Creatinine Clr Calc Pharmacy 74.6; Estimated Glomerular Filt Rate > 60; Glucose Random 85 mg/dL (60-115); Potassium 4.1 mmol/L (3.3-5.1); Sodium 142 mmol/L (135-145); Total Protein 6.8 g/dL (6.5-8.0)
[2024-01-27 22:19] LABS: Troponin-I High Sensitivity 3.7 ng/L (<3.5-17.0)
[2024-01-27 22:23] VITALS: PULSE 77
--- NOTE | 2024-01-27 22:25 | PC.NURSE ---
PT reports chest pain has resolved @ this time. Denies any complaints. 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
[2024-01-27 22:30] LABS: Influenza A PCR NEGATIVE (Negative); Influenza B PCR NEGATIVE (Negative); Resp Syncy Virus RNA Qual PCR NEGATIVE (Negative); SARS COV2 PCR INHOUSE NEGATIVE (Negative)
[2024-01-27 23:24] VITALS: BP 145/54; PULSE 74; RESP 18; TEMP 36.7; O2SAT 95
--- NOTE | 2024-01-27 23:29 | ED_ITS ---
HPI - Chest Pain General Chief Complaint: Chest Pain Stated Complaint: prev chest pain,fever Time Seen by Provider: 01/27/24 23:17 Source: patient, RN notes reviewed and old records reviewed Mode of arrival: ambulatory Limitations: no limitations History of Present Illness HPI narrative: 58 year old female wtih pmhx significant for familial HDL, insomnia, symptomatic advanced AV block, left bundle-branch block with dual-chamber cardiac pacemaker, current tobacco smoker presents to the ED today for evaluation of left-sided chest pain at 4:00 p.m. today. Admits to having left-sided chest discomfort while at work earlier today. She states this lasted for less than a minute before resolving completely without intervention. This did not radiate. She states that she was not going to check into the ED as the pain had resolved and that her coworkers urged her to. She is asymptomatic at present. Admits to having pacemaker which was checked approximately 1 month ago without issues. No recent travel or long car rides. Denies injury or trauma to the chest. No known sick contacts. Denies fever, chills, sore throat, shortness of breath, dyspnea, palpitations, nausea or vomiting, diaphoresis, calf pain/tenderness. Related Data Home Medications ?Medication ?Instructions ?Recorded ?Confirmed nitrofurantoin cap PO 08/03/20 04/23/23 monohydrate/macrocrystals 100 mg capsule Allergies Allergy/AdvReac Type Severity Reaction Status Date / Time No Known Allergies Allergy Verified 01/27/24 21:45 Review of Systems 2 Review of Systems: Constitutional: No fever, chills, fatigue, night sweats, weight changes ENT/Mouth: No ear pain, hearing loss, nasal congestion, sinus pain, rhinorrhea, sore throat Eyes: No eye pain, swelling, redness, vision changes, discharge Cardio: No palpitations, CRUMP, orthopnea, peripheral edema, chest pain Pulm: No SOB, cough, sputum, wheezing, dyspnea, hemoptysis GI: No nausea, vomiting, hematemesis, abdominal pain, diarrhea, constipation, hematochezia, melena : No irregular bleeding, dysuria, frequency, urgency, hesitancy, hematuria, flank pain, urinary flow changes, urinary incontinence or retention MSK: No back pain, neck pain, joint pain, myalgias Skin: No lesions, rashes Neuro: No weakness, numbness, paresthesias, LOC, dizziness, headache Psych: No anxiety/panic, depression, SI/HI, AH/VH All other systems reviewed and are negative. [facility] Past Medical History Attestation statement: The following information was validated with the patient. Source: old records reviewed and nursing notes reviewed Medical History Cardiac pacemaker in situ Menopausal syndrome Current smoker Familial hypercholesterolemia Insomnia, unspecified Surgical History H/O LEEP History of tubal ligation Family History Family History Father No problems noted. Mother No problems noted. 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 Cognitive needs: No Hearing needs: No Vision needs: Yes (glasses) Physical Exam 2 Vital Signs: Vital Signs: Last Vital Signs Temp 98.0 F 01/28/24 00:33 Pulse 74 01/28/24 00:33 Resp 16 01/28/24 00:33 BP 145/54 H 01/28/24 00:33 Pulse Ox 95 01/27/24 23:24 O2 Del Method Room Air 01/27/24 23:24 BMI result Body Mass Index 25.0 Vital signs stable Const: General: cooperative, healthy appearing, comfortable and no acute distress Orientation/consciousness: patient oriented x3 Limitations: no limitations HEENT: Head: Yes normal to inspection, Yes No palpable skull fracture present, Yes normocephalic and Yes atraumatic Eyes: General: appearance normal, both eyes and all related structures C onjunctivae: conjunctivae normal Sclerae: sclerae normal Pupils: Equal, round and reactive pupils present EOM: EOMs intact bilaterally Neck: Neck: Yes normal visual inspection, Yes full ROM, Yes no lymphadenopathy and Yes no JVD Chest: Chest palpation & inspection: normal inspection of the chest and normal palpation of entire chest wall Resp: Effort & Inspection: normal respiratory effort and able to speak in complete sentences Auscultation: clear to auscultation bilaterally Cardio: Other: + 2+ radial pulses Jugular venous distension: no JVD Rate: regular rate Rhythm: regular rhythm GI: Inspection: Yes normal to inspection Skin: General skin exam: no rashes or lesions noted Neuro: General: patient oriented x3 and gait normal Cranial nerves: Yes Equal, round and reactive pupils present Extrem: General: Yes normal to inspection Course Course Course Narrative: 0021-- Patient's initial troponin 3.7. I informed her that we repeat this to ensure normal levels. She verbalizes understanding however is declining this at this time. We discussed risks of declining this lab work. She has tested negative for covid/flu/rsv. chest xray does not demonstrate infiltrate or consolidation to suggest pneumonia. No fluid. EKG showing atrial sensed ventricular paced rhythm at a rate of 86 beats per minute, QT 416, QTC 497, no significant changes when compared to EKG on 02/23/2022. No acute ischemic changes. > patient is well appearing and asymptomatic. Discussed all workup results with patient. She continues to decline repeat trop at this time. 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 Patient has remained stable throughout ED visit today. Discussed worrisome signs and symptoms and when to return to the ED. All questions answered at this time. Patient is agreeable with disposition and stable for discharge. Medical Decision Making Medical Decision Making [facility] Narrative: 58 year old female wtih pmhx significant for familial HDL, insomnia, symptomatic advanced AV block, left bundle-branch block with dual-chamber cardiac pacemaker, current tobacco smoker presents to the ED today for evaluation of left-sided chest pain at 4:00 p.m. today. Patient hypertensive. Vitals otherwise WNL. She is nontoxic-appearing and in no acute distress. Lying comfortably in bed watching TV. RRR. No reproducible chest wall tenderness. Lungs are CTA bilaterally. Normal effort of breathing. No calf tenderness bilaterally. No diaphoresis. Differential diagnosis includes ACS, arrhythmia, costochondritis, pleuritis, msk sprain/ strain, viral syndrome, pneumonia. Lower suspicion for PE, effusion, ruptured aneurysm. Plan for labs, viral serology, ekg, cxr, and re-evaluation. Differential Diagnosis Differential Diagnoses: The differential diagnosis associated with the presentation includes as above. Admission/Observation Consideration of admission/observation: Escalation of care including admission/observation considered In this patient with known dual-chamber pacemaker presenting with episode of left-sided chest pain, admission was considered. Lab Data MDM Lab Attestation statement: I reviewed the patient's lab results. as above. 01/27/24 21:47 01/27/24 21:47 Labs: Lab Results 01/27/24 Range/Units 21:47 WBC 7.1 (4.8-10.8) X10*3/uL RBC 4.36 (4.20-5.50) X10*6/uL Hgb 13.4 (12.0-16.0) g/dl Hct 39.5 (37.0-47.0) % MCV 90.6 (80.0-98.0) fL MCH 30.7 (27.0-33.0) pg MCHC 33.9 (31.0-35.0) g/dl RDW 11.7 (11.0-16.0) % Plt Count 292 (160-400) X10*3/uL MPV 10.5 (9.4-12.3) fL Absolute Nucleated RBC 0.000 (0.0-0.012) X10*3/uL Nucleated RBC % (auto) 0.0 (0.0-0.2) /100WBC Sodium 142 (135-145) mmol/L Potassium 4.1 (3.3-5.1) mmol/L Chloride 107 (96-108) mmol/L Carbon Dioxide 25 (22-29) mmol/L Anion Gap 14 (12-20) BUN 23 H (9-16) mg/dL Creatinine 0.73 (0.5-1.4) mg/dL Estim Creat Clear Calc 74.6 Estimated GFR > 60 Random Glucose 85 (60-115) mg/dL Calcium 9.0 (8.4-10.2) mg/dL Total Bilirubin 0.5 (0.0-1.0) mg/dL AST 22 (5-31) U/L ALT 21 (0-31) U/L Alkaline Phosphatase 70 (39-117) U/L Troponin I High Sens 3.7 (<3.5-17.0) ng/L Total Protein 6.8 (6.5-8.0) g/dL Albumin 4.1 (3.5-5.0) g/dL Influenza Type A (PCR) NEGATIVE (Negative) Influenza Type B (PCR) NEGATIVE (Negative) RSV RNA Qual (PCR) NEGATIVE (Negative) SARS-CoV-2 RNA (RT-PCR) NEGATIVE (Negative) Independent Interpretation I performed an independent interpretation of an: EKG and Plain X-Ray Interpretation: EKG showing atrial sensed ventricular paced rhythm at a rate of 86 beats per minute, QT 416, QTC 497, no acute ischemic changes or ST elevations. I personally reviewed chest x-ray and agree with radiologist's interpretation Radiology Impression Discussion of test interpretation with radiology: I have reviewed the radiologist's reading. Radiologist Impression: EXAMINATION: XR CHEST CLINICAL INFORMATION: Left sided chest pain. COMPARISON: Chest radiograph dated 11/20/2023. TECHNIQUE: 2 views of the chest were obtained. FINDINGS: Left pectoral pacemaker leads are unchanged in position. The trachea is in normal anatomic position. Heart size is normal. The lungs are clear. No pleural effusion or pneumothorax. No acute osseous abnormality. XR/XR chest 2V IMPRESSION: Stable appearance of the heart and lungs. No active disease. External Record Review External record reviewed: Inpatient record, Office record, Outpatient record, Prior outpatient labs, Prior outpatient radiology, Primary care record and Outside ED record Prescription Management I considered prescription management with: Pain Medication Chronic Conditions Patient?s care impacted by: Other (Av block with pacemaker, tobacco smoker) Social Determinants Patient?s care significantly limited by Social Determinants of Health including: Other Social Determinant of Health Critical Care Time Critical Care Time Critical Care Time: Yes Total Critical Care Time: 31 Attestation: Critical care time in the amount of 31 minutes has been provided to the patient in terms of direct patient care, frequent reevaluation, review and interpretation of medical data and results, and management of potentially life- threatening conditions. This is all outside of any medical procedures. Discharge Plan Discharge Clinical Impression: Chest pain Patient Disposition: Home, Self-Care Instructions: Chest Pain (ED) Additional Instructions: Your labs today are reassuring. You are declining repeat cardiac enzyme. You have tested negative for covid/flu/rsv. Chest xray does not demonstrate infection or fluid. Take Tylenol or ibuprofen at home for pain/discomfort. Make sure you follow-up with either your PCP or electric motor repair supervisor this week regarding today's visit. Return with new or worsening symptoms. In the case of an emergency call 911 Prescriptions: No Action nitrofurantoin monohyd/m-cryst 100 mg capsule PO Referrals: [facility] [Provider Group] Interventions: ED Discharge Assessment Last Done: 01/28/24 00:33 Discharge Date/Time: 01/28/24 00:34 Print Language: [place] Leonean
[2024-01-28 00:33] VITALS: BP 145/54; PULSE 74; RESP 16; TEMP 36.7
== END 2024-01-28 00:34 | disposition home or self-care (01) ==
PROVIDERS: Emergency Provider Emergency Medicine Emergency Medical Services; PCP Internal Medicine
DX: R07.9 Chest pain, unspecified (principal); I44.30 Unspecified atrioventricular block; I44.7 Left bundle-branch block, unspecified; Z95.0 Presence of cardiac pacemaker; Z03.818 Encounter for observation for suspected exposure to other biological agents ruled out
CPT/HCPCS: 0241U; 36415; 71046; 80053; 84484; 85027; 93005; 99283; 99285

== ENCOUNTER → 2024-01-27 21:35 | Outpatient (BNV) | payer OTHER, SELFPAY | PROVIDERS: Emergency Provider Emergency Medicine Emergency Medical Services; PCP Internal Medicine; Visit Provider Internal Medicine | DX: R94.31 Abnormal electrocardiogram [ECG] [EKG] (principal) | CPT/HCPCS: 93010 ==

== ENCOUNTER 2024-02-08 09:29 | Outpatient (REF) | payer OTHER, SELFPAY ==
[2024-02-08 11:07] LABS: Appearance Urine Clear; Color Urine Yellow; Glucose Urine UA Negative (Negative); Leukocyte Esterase Urine Negative (Negative); Nitrite Urine Negative (Negative); Specific Gravity - Urine >= 1.030 (1.005-1.025); Urine Blood Negative (Negative); Urine Ketones Trace mg/dL (Negative); Urine Protein Negative (Neg-Trace)
== END 2024-02-08 09:30 | disposition home or self-care (01) ==
LOC: HO.LAB 09:29
PROVIDERS: PCP Internal Medicine; Visit Provider Internal Medicine
DX: R39.9 Unspecified symptoms and signs involving the genitourinary system (principal)
CPT/HCPCS: 81003

== ENCOUNTER → 2024-03-20 23:59 | Outpatient (BNV) | payer OTHER, SELFPAY ==
--- NOTE | 2024-03-21 13:42 | MHC.OFFVIS ---
Intake Visit Reasons: Remote Device Check- Medtronic Allergies No Known Allergies Allergy (Verified 01/27/24 21:45) PFSH Medical History Cardiac pacemaker in situ Menopausal syndrome Current smoker Familial hypercholesterolemia Insomnia, unspecified Surgical History H/O LEEP History of tubal ligation Family History Father No problems noted. Mother No problems noted. 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 Pacemaker function is adequate. Ventricular pacing 100% of time [id number] Cardiac Device Interrogation, pacemaker Procedure code (CPT) selection complete Assessment & Plan Assessment & Plan (1) Cardiac pacemaker in situ: Comment: Medtronic dual-chamber pacemaker placed, 02/23/2022 for symptomatic advanced AV block, left bundle-branch block pacing Code(s): Z95.0 - Presence of cardiac pacemaker Category: Medical Plan: See above Coding Level of Care Code Procedure Only Diagnoses Cardiac pacemaker in situ Z95.0 CPT Codes Cardiac Device Check - Cardiac Device 12: [id number] Cardiac Device Interrogation, pacemaker ([id number])
== END ==
PROVIDERS: PCP Internal Medicine; Visit Provider Internal Medicine Cardiovascular Disease
DX: Z45.018 Encounter for adjustment and management of other part of cardiac pacemaker (principal)
CPT/HCPCS: 93294

== ENCOUNTER 2024-04-21 10:58 | Outpatient (AMB) | payer OTHER, SELFPAY ==
[2024-04-21 11:18] VITALS: BP 118/60; PULSE 85; BMI 26.0
--- NOTE | 2024-04-21 11:18 | A.OFFVIS_ITS ---
Vital Signs 04/21/24 11:18 Height 5 ft 5 in Weight 156 lb 8.451 oz BMI 26.0 BP 118/60 Blood Pressure Location Lt brachial Position Sitting Pulse 85 Pulse Source Monitor Intake Visit Reasons: 1 year follow up w/ device check Intake Note: pt is here for follow up with device check and ekg pt feels good Allergies No Known Allergies Allergy (Verified 01/27/24 21:45) Medication List - Last Reconciled 04/21/24 by Balaji Cao MD No Known Home Meds HPI Comments Details: Ladi comes for follow-up. She remains extremely active in her day-to-day work. She denies any lightheadedness, syncope. Denies any prolonged palpitations. Denies any shortness of breath, orthopnea, PND, exertional shortness of breath, chest pain. Comes for pacemaker follow-up. [facility] Medical History Cardiac pacemaker in situ Menopausal syndrome Current smoker Familial hypercholesterolemia Insomnia, unspecified Surgical History H/O LEEP History of tubal ligation Family History Father No problems noted. Mother No problems noted. 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 Cognitive needs: No Hearing needs: No Vision needs: Yes (glasses) Review of Systems Const Denies weakness ENT Denies dizziness Card Denies chest pain, Denies chest pain with activity, Denies syncope, Denies rapid heart rate, Denies pedal edema, Denies edema, Denies leg edema, Denies lightheadedness, Denies palpitations, Denies dyspnea, Denies dyspnea on exertion and Denies orthopnea Resp Denies cough, Denies dyspnea and Denies dyspnea on exertion GI Denies hematochezia and Denies change in stool character Musc Denies abnormal gait, Denies muscle cramps, Denies muscle weakness, Denies numbness, Denies radiating pain into limb and Denies tingling Neuro Denies abnormal gait, Denies dizziness, Denies syncope, Denies numbness, Denies tingling and Denies weakness Endo Denies palpitations Physical Exam Vital Signs: Last Vital Signs Pulse 85 04/21/24 11:18 BP 118/60 04/21/24 11:18 BMI result Body Mass Index 26.0 Const General: cooperative, comfortable, no acute distress, alert and awake Nutritional Appearance: average body habitus Orientation/consciousness: patient oriented x3 Neck Neck: Yes trachea midline, Yes supple and Yes no JVD Resp Effort & Inspection: normal respiratory effort Auscultation: clear to auscultation bilaterally Cardio Jugular venous distension: no JVD Palpation: normal PMI Rate: regular rate Rhythm: regular rhythm Heart sounds: S1 normal heart sound present, S2 normal heart sound present, no click, no gallops, no murmurs and no rubs GI Auscultation: normal bowel sounds Skin General skin exam: no rashes or lesions noted Neuro General: patient oriented x3 and no focal motor deficits Extrem General: Yes no clubbing, cyanosis or edema Office Procedures Cardiac Device Check Cardiac Device Check Details: Dual-chamber Medtronic pacemaker in place, programmed in DDDR at 60 beats per minute. Ventricularly pacer dependent 100% time. Ventricular sensing could not be checked. Atrial sensing is excellent. Two episodes of nonsustained VT noted. Atrial pacing thresholds excellent. Ventricular pacing thresholds are excellent and reprogrammed to enhance battery life. Battery life is at about 10 years. [id number] Cardiac Device Check, pacemaker dual lead Procedure code (CPT) selection complete EKG Details: EKG shows atrially sensed, ventricularly paced rhythm with isolated PVC [id number], Complete Assessment & Plan Assessment & Plan (1) Cardiac pacemaker in situ: Comment: Medtronic dual-chamber pacemaker placed, 02/23/2022 for symptomatic advanced AV block, left bundle-branch block pacing Code(s): Z95.0 - Presence of cardiac pacemaker Category: Medical Plan: Cardiac pacemaker in-situ for advanced symptomatic AV block with near-syncope. Has had no recurrent episodes since pacemaker placement. Patient is pacer dependent with constant ventricular pacing noted. Physically doing well at this point time. No new symptoms. Will continue monitor remotely every 3 months and follow up in the clinic in 6 months time. (2) Cardiac arrhythmia: Code(s): I49.9 - Cardiac arrhythmia, unspecified Category: Medical Plan: Noted 2 episodes of nonsustained ventricular tachycardia on the cardiac telemetry. Will obtain echocardiogram to assess LV systolic function. There was no evidence of myocardial ischemia by prior myocardial perfusion imaging after pacemaker placement. Cardiac MRI also was non revealing although there is a small focal uptake of fibrosis. Will continue monitor by pacer telemetry. Will follow up in the clinic in 1 year's time, sooner p.r.n.. Thank you for allowing me to partake in the care Coding Level of Care Code Est Pt Level 4 (63889) Diagnoses Cardiac pacemaker in situ Z95.0 Cardiac arrhythmia I49.9 CPT Codes Cardiac Device Check - Cardiac Device 2: [id number] Cardiac Device Check, pacemaker dual lead ([id number]) EKG - CPT: 46904-Dctliimtfxftkbikh, Complete ([id number])
== END 2024-04-21 11:40 | disposition home or self-care (01) ==
PROVIDERS: PCP Internal Medicine; Visit Provider Internal Medicine Cardiovascular Disease
DX: I49.9 Cardiac arrhythmia, unspecified (principal); Z95.0 Presence of cardiac pacemaker
CPT/HCPCS: 93010; 93280; 99214

== ENCOUNTER → 2024-04-21 10:58 | Outpatient (BNVA) | payer OTHER, SELFPAY | PROVIDERS: PCP Internal Medicine; Visit Provider Internal Medicine Cardiovascular Disease | DX: I49.9 Cardiac arrhythmia, unspecified (principal); Z45.018 Encounter for adjustment and management of other part of cardiac pacemaker | CPT/HCPCS: 93005; 93280 ==

== ENCOUNTER → 2024-05-22 09:42 | Outpatient (REF) | payer OTHER, SELFPAY ==
--- NOTE | 2024-05-22 09:48 | CA_ITS ---
Transthoracic Echocardiogram Patient (Last, First, Middle): Ladi Enriquez, Gender: Female Date of : 1965 Age: 58 Procedure Date: 05/22/2024 Procedure Type: Transthoracic Echocardiogram Location: OP Height: 165. cm Weight: 68.04 kg BSA: 1.75 m2 Heart Rate: 70 bpm BP: 142 / 90 mmHg Pricing Specialist: JELLY Referring MD: Balaji Cao MD Support Merchandiser: Balaji Cao MD Symptoms: I49.9 - Cardiac arrhythmia, unspecified Study Quality: Adequate ECG Rhythm: Sinus Conclusions: - 1. Normal LV ejection fraction of 55-60% with grade 1 diastolic dysfunction 2. Trivial aortic regurgitation 3. Normal RV systolic pressure 4. No gross pericardial effusion Findings Left Ventricle Normal left ventricular cavity size. There is normal left ventricular wall thickness. The left ventricular systolic function is normal. The visually estimated ejection fraction is between 55-60%. There is paradoxical septal motion consistent with a right ventricular pacemaker. Spectral Doppler is indicative of an impaired relaxation filling pattern. Normal left ventricular filling pressures. E/E prime ratio is <8, consistent with normal filling pressures. Evidence suggests grade I (mild) diastolic dysfunction. Peak GLS is -14.0%, which is moderately reduced. Right Ventricle Normal right ventricular cavity size and systolic function. There is a pacemaker wire seen in the right ventricle. Atria The left atrium is normal in size. There is no evidence of interatrial shunt. The right atrium is normal in size. A pacemaker wire is identified in the right atrium. Aortic Valve Normal aortic valve structure and function. There is no aortic valve stenosis. There is trace (trivial) aortic valve regurgitation. Mitral Valve Normal mitral valve structure and function. There is trace mitral valve regurgitation. There is no mitral valve stenosis. Pulmonic Valve The pulmonic valve is likely normal. Tricuspid Valve Normal tricuspid valve structure. There is trace tricuspid valve regurgitation. The right ventricular systolic pressure is normal. The right ventricular systolic pressure is 14 mmHg. Normal right atrial pressure. There is no evidence of pulmonary hypertension. Great Vessels The pulmonary artery was not well visualized. There is no dilatation of the ascending aorta measuring 3.00 cm. Venous The inferior vena cava is normal in size and collapses greater than 50% with inspiration. Pericardium/Pleural There is no evidence of pericardial effusion. Measurements 2D Linear Measurements IVSd: 0.74 0.6-0.9/0.6-1.0 cm LVIDd: 4.60 3.9-5.3/4.2-5.9 cm LVIDd Index: 2.63 2.4-3.2/2.2-3.1 cm/m2 LVIDs: 3.13 2.0-3.6 cm LVPWd: 0.71 0.7-1.1 cm LA Diam: 2.60 2.7-3.8/3.0-4.0 cm LAIDs Index: 1.49 1.5-2.3 cm/m2 LV Mass: 129.64 67-162/88-224 g LV Mass Index: 74.08 43-95/49-115 g/m2 LVOT Diam: 2.10 3.0+(-)1.3 cm 2D Systolic Function EF 4C: 57.20 >55% EF 2C: 55.80 >55% EF BiP: 57.30 >55% Mitral Valve MV Pk E: 0.62 MV PK A: 0.73 MV Decel Time: 139.00 E/A: 0.90 E'Lateral: 9.14 E'Medial: 8.05 E/E' Med: 7.70 E/E' Lat: 6.80 PHT: 41.00 MVA PHT: 5.37 Decel [place]: 4.47 Aortic Valve AoV Pk Puma: 1.13 AoV Mn Puma: 0.81 AoV VTI: 0.23 AoV Pk Grad: 5.00 Aov Mn Grad: 3.00 TEENA Cont.VTI: 2.48 LVOT LVOT Pk Puma: 0.78 LVOT Mn Puma: 0.56 LVOT VTI: 0.16 LVOT Pk Grad: 2.00 LVOT Mn Grad: 2.00 LVOT Diam: 2.10 LVOT Area: 3.46 Diastolic Function MV Pk E: 0.62 MV Pk A: 0.73 E/A: 0.90 E'Medial: 8.05 E/E' Med: 7.70 E' Laterial: 9.14 E/E' Lat: 6.80 Right Ventricle TAPSE (mm): 18.40 TVS' Puma: 10.60 Tricuspid Valve TR Pk Puma: 1.67 TR Pk Grad: 11.00 RA Press: 3.00 RVSP: 14.00 Great Vessels Aorta Sinus of Valsalva: 3.10 2.0-3.5 cm Ao Asc: 3.00 2.1-3.4 cm Pulmonary Valve PV Pk Puma: 0.79 Peak PV Grad: 2.00 Updated in Other Vendor System with Status of Final Balaji Cao MD electronically signed on 05/23/2024 12:22:47 PM with status of Final
== END ==
LOC: HO.CARD 09:42
PROVIDERS: PCP Internal Medicine; Visit Provider Internal Medicine Cardiovascular Disease
DX: I49.9 Cardiac arrhythmia, unspecified (principal)
CPT/HCPCS: 93306; 93356

== ENCOUNTER 2024-05-22 09:43 | Outpatient (REF) | payer OTHER, SELFPAY | END 2024-05-22 09:44 | disposition home or self-care (01) | LOC: HO.MAMMO 09:43 | PROVIDERS: PCP Internal Medicine; Visit Provider Internal Medicine | DX: Z13.89 Encounter for screening for other disorder (principal) ==

== ENCOUNTER → 2024-05-22 09:48 | Outpatient (BNV) | payer OTHER, SELFPAY | PROVIDERS: PCP Internal Medicine; Visit Provider Internal Medicine Cardiovascular Disease | DX: I35.1 Nonrheumatic aortic (valve) insufficiency (principal); R93.1 Abnormal findings on diagnostic imaging of heart and coronary circulation | CPT/HCPCS: 93306; 93356 ==

== ENCOUNTER → 2024-06-20 23:59 | Outpatient (BNV) | payer OTHER, SELFPAY ==
--- NOTE | 2024-06-24 13:08 | MHC.OFFVIS ---
Intake Visit Reasons: Remote device check- Medtronic Allergies No Known Allergies Allergy (Verified 01/27/24 21:45) PFSH Medical History Cardiac pacemaker in situ Menopausal syndrome Current smoker Familial hypercholesterolemia Insomnia, unspecified Surgical History H/O LEEP History of tubal ligation Family History Father No problems noted. Mother No problems noted. 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 Patient ventricularly pacer dependent. Pacemaker function is adequate [id number] Cardiac Device Interrogation, pacemaker Procedure code (CPT) selection complete Assessment & Plan Assessment & Plan (1) Cardiac pacemaker in situ: Comment: Medtronic dual-chamber pacemaker placed, 02/23/2022 for symptomatic advanced AV block, left bundle-branch block pacing Code(s): Z95.0 - Presence of cardiac pacemaker Category: Medical Plan: See above Coding Level of Care Code Procedure Only Diagnoses Cardiac pacemaker in situ Z95.0 CPT Codes Cardiac Device Check - Cardiac Device 12: [id number] Cardiac Device Interrogation, pacemaker ([id number])
== END ==
PROVIDERS: PCP Internal Medicine; Visit Provider Internal Medicine Cardiovascular Disease
DX: I44.39 Other atrioventricular block (principal); Z95.0 Presence of cardiac pacemaker
CPT/HCPCS: 93294

== ENCOUNTER → 2024-09-20 23:59 | Outpatient (BNV) | payer OTHER, SELFPAY ==
--- NOTE | 2024-09-24 15:31 | MHC.OFFVIS ---
Intake Visit Reasons: Remote device check- Medtronic Allergies No Known Allergies Allergy (Verified 01/27/24 21:45) PFSH Medical History Cardiac pacemaker in situ Menopausal syndrome Current smoker Familial hypercholesterolemia Insomnia, unspecified Surgical History H/O LEEP History of tubal ligation Family History Father No problems noted. Mother No problems noted. 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 Pacemaker function is adequate [id number] Cardiac Device Interrogation, pacemaker Procedure code (CPT) selection complete Assessment & Plan Assessment & Plan (1) Cardiac pacemaker in situ: Comment: Medtronic dual-chamber pacemaker placed, 02/23/2022 for symptomatic advanced AV block, left bundle-branch block pacing Code(s): Z95.0 - Presence of cardiac pacemaker Category: Medical Plan: See above Coding Level of Care Code Procedure Only Diagnoses Cardiac pacemaker in situ Z95.0 CPT Codes Cardiac Device Check - Cardiac Device 12: [id number] Cardiac Device Interrogation, pacemaker ([id number])
== END ==
PROVIDERS: PCP Internal Medicine; Visit Provider Internal Medicine Cardiovascular Disease
DX: I44.39 Other atrioventricular block (principal); Z95.0 Presence of cardiac pacemaker
CPT/HCPCS: 93294

== ENCOUNTER → 2024-12-21 23:59 | Outpatient (BNV) | payer OTHER, SELFPAY ==
--- NOTE | 2024-12-23 15:13 | MHC.OFFVIS ---
Intake Visit Reasons: Remote device check- Medtronic Allergies No Known Allergies Allergy (Verified 01/27/24 21:45) PFSH Medical History Cardiac pacemaker in situ Menopausal syndrome Current smoker Familial hypercholesterolemia Insomnia, unspecified Surgical History H/O LEEP History of tubal ligation Family History Father No problems noted. Mother No problems noted. 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 Pacemaker function is adequate [id number] Cardiac Device Interrogation, pacemaker Procedure code (CPT) selection complete Assessment & Plan Assessment & Plan (1) Cardiac pacemaker in situ: Comment: Medtronic dual-chamber pacemaker placed, 02/23/2022 for symptomatic advanced AV block, left bundle-branch block pacing Code(s): Z95.0 - Presence of cardiac pacemaker Category: Medical Plan: See above Coding Level of Care Code Procedure Only Diagnoses Cardiac pacemaker in situ Z95.0 CPT Codes Cardiac Device Check - Cardiac Device 12: [id number] Cardiac Device Interrogation, pacemaker ([id number])
== END ==
PROVIDERS: PCP Internal Medicine; Visit Provider Internal Medicine Cardiovascular Disease
DX: I44.30 Unspecified atrioventricular block (principal); Z95.0 Presence of cardiac pacemaker
CPT/HCPCS: 93294

== ENCOUNTER 2025-01-21 07:56 | Outpatient (REF) | payer OTHER, SELFPAY | END 2025-01-21 07:57 | disposition home or self-care (01) | LOC: HO.MAMMO 07:56 | PROVIDERS: PCP Internal Medicine; Visit Provider Internal Medicine | DX: Z12.31 Encounter for screening mammogram for malignant neoplasm of breast (principal) | CPT/HCPCS: 77063; 77067 ==

== ENCOUNTER → 2025-01-21 08:15 | Outpatient (BNV) | payer OTHER, SELFPAY | PROVIDERS: PCP Internal Medicine; Visit Provider Internal Medicine | DX: Z12.31 Encounter for screening mammogram for malignant neoplasm of breast (principal) | CPT/HCPCS: 77063; 77067 ==

== ENCOUNTER 2025-02-05 10:21 | Outpatient (AMB) | payer OTHER, SELFPAY ==
--- NOTE | 2025-02-05 10:36 | A.OFFPC_ITS ---
Vital Signs 02/05/25 10:38 Height 5 ft 5 in Weight 153 lb BMI 25.5 BP 112/68 Blood Pressure Location Lt brachial Position Sitting Pulse 86 Pulse Source Pulse Oximeter Temp 97.3 F Temp Source Temporal Artery Scan Pulse Oximetry (%) 96 Oxygen Delivery Method Room Air Intake Visit Reasons: annual exam/pap Intake Note: Patient is here today for a physical. Animation Director Required: No Patient Accounting Representative: Not Required per policy Accompanied by: Self / Same As Patient Allergies No Known Allergies Allergy (Verified 02/05/25 11:16) Medication List - Last Reconciled 02/05/25 by Kiesha Lira PA-C No Known Home Meds Tobacco use date assessed: 02/05/25 Dental Screening Dental Screen Date: 02/05/25 Did you have a dental visit in the last 12 months?: No Did you have a dental problem in the last 6 months where you did not have access to dental care?: No Was dental information given to patient?: No HPI annual exam/pap HPI Details The patient is a 59-year-old female presenting for her annual physical examination. In addition she would like to discuss insomnia. She reports persistent difficulties with sleep onset and maintenance despite medical interventions with trazodone and Seroquel, leading to continued fragmented sleep patterns. The insomnia remains unresolved despite environmental adjustments and alterations in medication dosages, impacting the quality of her restorative sleep. Additionally, she experiences recurrent styes in her eyes. The patient has a h istory of pacemaker placement subsequent to symptomatic bradycardia experienced in conjunction with dizziness, initially tied to suspected COVID-19 infection. Her menopausal symptoms, including persistent hot flashes over a decade, further complicate her clinical picture. She has undergone recent mammography with normal results. She has not had a colonoscopy due to personal apprehensions but agrees to proceed with non- invasive Cologuard testing due to a lack of family history of colorectal cancer. Social History - Works full-time with [employer], pointing to a physically demand ing job. - Experiences normal daytime activity an d functional status with employment commitments. - History of former smoking. - Coping without formal support despite personal loss. [facility] Medical History (Updated 02/05/25 @ 17:41 by Kiesha Lira PA-C) Overweight (BMI 25.0-29.9) Annual physical exam Cervical cancer screening Menopausal symptom History of mammogram (~01/21/25) Cardiac pacemaker in situ Menopausal syndrome Current smoker Familial hypercholesterolemia Insomnia, unspecified Surgical History H/O LEEP History of tubal ligation Family History Father No problems noted. Mother No problems noted. 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 1. Little interest or pleasure in doing things: not at all 2. Feeling down, depressed, or hopeless: not at all 3. Trouble falling or staying asleep, or sleeping too much: more than half the days 4. Feeling tired or having little energy: several days 5. Poor appetite or overeating: not at all 6. Feeling bad about yourself - or that you are a failure or have let yourself or your family down: not at all 7. Trouble concentrating on things, such as reading the newspaper or watching television: not at all 8. Moving or speaking so slowly that other people could have noticed. Or the opposite - being so fidgety or restless that you have been moving around a lot more than usual: not at all 9. Thoughts that you would be better off or of hurting yourself in some way: not at all Total score: 3 Depression Screening Interpretation: Positive Depression Screening Follow-up: New Medication prescribed Depression Screening Done: Yes 30555 - PHQ-9 Billing: Yes Source: Developed by Drs. Nam Singh, Magaly Grajeda, Bob John and colleagues, with an educational mirna from [employer]. Thrive Questionnaire Date Thrive assessed: 01/29/25 I am a: Patient What is your living situation today?: I have a steady place to live Within the past 12 months, did the food you bought not last and you didn't have the money to get more?: Never true Within the past 12 months, did you worry whether your food would run out before you got money to buy more?: Never true Do you have trouble paying for medicines?: No Do you have trouble getting transportation to medical appointments?: No Do you have trouble paying your heating and electricity bill?: No Do you have trouble taking care of your child, family member or friend?: No Do you have trouble with day-to-day activities such as bathing, preparing meals, shopping, managing finances, etc.?: No Are you currently unemployed and looking for a job?: No Are you interested in more education?: No Please select the resources that you would like help with: None Currently or been in a relationship where the following occur: No concerns reported THRIVE Score: 0 AUDIT C Alcohol Use Questionnaire (AUDIT-C) 1. How often do you have a drink containing alcohol?: Never Total Score: 0 Score Reviewed/Action Taken: No GABE-7 AMB Questionnaire GABE-7 Date GABE - 7 assessed: 02/05/25 Feeling nervous, anxious, or on edge: 1 = Several days Not being able to stop or control worryin = Several days Worrying too much about different things: 2 = More than half the days Trouble relaxin = Nearly every day Being so restless that it is hard to sit still: 0 = Not at all Becoming easily annoyed or irritable: 0 = Not at all Feeling afraid as if something awful might happen: 1 = Several days Total GABE-7 score (0-4 normal; 5-9 mild; 10-14 moderate; 15-21 severe): 8 Source: Developed by Drs. Nam Singh, Magaly Grajeda, Bob John and colleagues, with an educational mirna from [employer]. GABE-7 Assessment Billing GABE-7 Assessment Tool: GABE-7 Assessment 92810 Review of Systems Const Details: - Sleep: Reports insomnia with sleep difficulty. Denies sleep apnea. - Ophthalmologic: Reports recurrent styes. - Cardiovascular: History of dizziness managed with a pacemaker. - Psychological: Reports occasional depression but denies current need for counseling or psychiatric intervention. - Gastrointestinal: Denies black or bloody stools. Physical exam (Primary Care) Vital Signs: Last Vital Signs Temp 97.3 F 02/05/25 10:38 Pulse 86 02/05/25 10:38 BP 112/68 02/05/25 10:38 Pulse Ox 96 02/05/25 10:38 Oxygen Delivery Method Room Air 02/05/25 10:38 Care Plan Goal for BP management: <130/90 at Goal BMI result Body Mass Index 25.5 BMI Assessment/Plan discussion: High BMI High, discussed plan: lifestyle, weight reduction, dietary, physical activity and alcohol moderation Tobacco/Smoking Status: Tobacco use Status Tobacco use date assessed 02/05/25 02/05/25 10:39 Patient Tobacco Use Status Former Tobacco user 02/05/25 10:37 e-Cigarette/Vaping Use Never Used 02/05/25 10:37 PHQ-9: PHQ-9 Score PHQ-9: Total score 3 02/05/25 11:16 Depression Screening Interpretation: Positive Depression Screening Follow-up: New Medication prescribed Thrive Assessment: Date of Thrive Assessment Date Thrive assessed 01/29/25 02/05/25 10:37 Currently or been in a relationship where the following occur: No concerns reported Const Other: Appearance: Alert. Oriented X3. No acute distress. Head: Normal external exam. Normocephalic. Atraumatic. Eyes: Pupils are equal, round, and reactive to light. Extraocular movements intact. Conjunctiva and sclera normal. Eyelids normal. Reports of recurrent styes. Ears: External auditory canal normal. Tympanic membranes normal. Throat: Pharynx normal. Uvula midline. Moist mucous membranes. Neck: Normal inspection. Neck supple. Full range of motion. No adenopathy. Thyroid Normal. No meningeal signs. No neck mass noted. Cardiovascular: Normal heart rate and rhythm. Heart sound normal. No murmurs noted. Pulses normal throughout. History of pacemaker placement due to bradycardia (40 beats per minute). Respiratory: No respiratory distress. Painless inspiration. Breath sounds normal. No wheezes/rales/rhonchi noted. Chest nontender. No accessory muscle usage noted or decreased air movement noted. Abdomen: Soft and nontender. Bowel sounds normal in all 4 quadrants. No distention noted. No organomegaly noted. No visible injury noted. Back: No costovertebral angle tenderness. Full range of motion noted. Skin: Skin warm and dry. Normal skin color. Normal skin turgor. No rashes/lesions/lacerations noted. Extremities: No lower extremity edema. Extremities exhibit normal range of motion. Extremities nontender. Neuro: Oriented X 3. No motor deficit. No sensory deficit. Reflexes normal. Reports of dizziness in the past. Results Reviewed Results Reviewed: - Labs: Previous blood work normal, new panel ordered. - Diagnostics: Mammogram on 01/21/2025 was normal. - Screening: Agreement to complete Cologuard due to no prior colonoscopy. Coding Level of Care Code Est Pt Level 3 (63931) Est Pt Prev Care 40-64y(63864) Diagnoses Annual physical exam Z00.00 Menopausal symptom N95.1 Cervical cancer screening Z12.4 Insomnia, unspecified G47.00 Cardiac arrhythmia I49.9 Cardiac pacemaker in situ Z95.0 Overweight (BMI 25.0-29.9) E66.3 Additional Codes GABE-7 Assessment Billing - GABE-7 Assessment Tool: GABE-7 Assessment 04894 ([id number]) PHQ-9 - 75426 - PHQ-9 Billing: Yes ([id number]) Assessment & Plan Assessment & Plan (1) Annual physical exam: Code(s): Z00.00 - Encounter for general adult medical examination without abnormal findings Category: Medical Plan: Patient had a normal physical exam today. Patient to have outpatient blood work. 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 Patient will be started on Remeron and Atarax for insomnia. Patient is return in 1 year. (2) Menopausal symptom: Code(s): N95.1 - Menopausal and female climacteric states Category: Medical Plan: Follow-up with EXTERMINATION SUPERVISOR for menopausal symptoms, acknowledge past contraindications. Condition is chronic and stable continue to monitor. (3) Cervical cancer screening: Code(s): Z12.4 - Encounter for screening for malignant neoplasm of cervix Category: Medical Plan: Follow-up with EXTERMINATION SUPERVISOR for menopausal symptoms, acknowledge past contraindications. (4) Insomnia, unspecified: Code(s): G47.00 - Insomnia, unspecified Category: Medical Plan: Discussed the unaddressed insomnia despite medication; planning further assessment with a therapeutic remeron and atarax. Condition is chronic and stable continue to monitor. (5) Cardiac arrhythmia: Code(s): I49.9 - Cardiac arrhythmia, unspecified Category: Medical Plan: Patient denies any acute complaints. Will continue to monitor condition is chronic. (6) Cardiac pacemaker in situ: Comment: Medtronic dual-chamber pacemaker placed, 02/23/2022 for symptomatic advanced AV block, left bundle-branch block pacing Code(s): Z95.0 - Presence of cardiac pacemaker Category: Medical Plan: Patient denies any acute complaints. Will continue to monitor condition is chronic. (7) Overweight (BMI 25.0-29.9): Code(s): E66.3 - Overweight Category: Medical Plan: Patient is a improve her diet and exercise regimen. Condition is chronic and stable continue to monitor. Plan Plan Patient was informed and verbally consented to the use of an ambient scribe for clinic note documentation during this visit. 1. Insomnia Discussed the unaddressed insomnia despite medication; planning further assessment with a therapeutic adjustment pending consultation. 2. Recurrent Styes Focus on possible environmental or stress factors, manage symptomatically, consider ocular hygiene. 3. Use Of Pacemaker Maintain routine follow-up and monitor for symptoms due to sleep issues affecting cardiac stability. 4. Menopausal Symptoms Follow-up with EXTERMINATION SUPERVISOR for menopausal symptoms, acknowledge past contraindications. 5. Colorectal Cancer Screening Need Use Cologuard for initial screening, refer for colonoscopy if indicated. During the visit, we reviewed the patient?s insomnia and evaluated prior treatments with trazodone and Seroquel. We discussed the options for possible changes in medication pending further review. I advised the patient on ocular hygiene to manage recurrent styes, and we reviewed the importance of pacemaker monitoring during routine follow-up visits. For menopausal symptoms, I explained the referral to a formulation chemist for further evaluation and potential treatment options, emphasizing the significance of addressing her symptoms. We proceeded with the recommendation of Cologuard for colorectal cancer screening, explaining the benefits of a non-invasive approach given her apprehension over traditional colonoscopy and the procedure's subsequent steps if needed. Orders: Orders Magnesium Today Z00.00 - Encounter for general adult medical examination without abnormal findings Hemoglobin A1c Today Z00.00 - Encounter for general adult medical examination without abnormal findings TSH reflex Free T4 Today Z00.00 - Encounter for general adult medical examination without abnormal findings Estrogen Today Z00.00 - Encounter for general adult medical examination without abnormal findings Testosterone, Total Today Z00.00 - Encounter for general adult medical examination without abnormal findings Prolactin Today Z00.00 - Encounter for general adult medical examination without abnormal findings C Reactive Protein Today Z00.00 - Encounter for general adult medical examination without abnormal findings Complete Blood Count Auto Diff Today Z00.00 - Encounter for general adult medical examination without abnormal findings Comprehensive [place]. Panel Fast Today Z00.00 - Encounter for general adult medical examination without abnormal findings Erythrocyte Sedimentation Rate Today Z00.00 - Encounter for general adult medical examination without abnormal findings Liver Panel Today Z00.00 - Encounter for general adult medical examination without abnormal findings Lipid Panel Today Z00.00 - Encounter for general adult medical examination without abnormal findings Vitamin B12 and Folate Today Z00.00 - Encounter for general adult medical examination without abnormal findings Vitamin D 25-OH Total Today Z00.00 - Encounter for general adult medical examination without abnormal findings Progesterone Today Z00.00 - Encounter for general adult medical examination without abnormal findings Referrals Cologuard Test Z12.11 - Encounter for screening for malignant neoplasm of colon, Z12.12 - Encounter for screening for malignant neoplasm of rectum SILK PRINTER Referral N95.1 - Menopausal and female climacteric states, Z12.4 - Encounter for screening for malignant neoplasm of cervix Medications: New mirtazapine (Remeron) 15 mg PO BEDTIME 90 tabs 1RF G47.00 - Insomnia, unspecified hydroxyzine HCl 50 mg PO BEDTIME 90 tabs 1RF Patient Instructions: - Try using Cologuard for colorectal cancer screening when it arrives. - Follow-up with EXTERMINATION SUPERVISOR as scheduled for menopausal symptoms evaluation. - Maintain current pacemaker surveillance and report any cardiac symptoms. - Discuss insomnia treatments with Dr. Perez and follow the plan once determined. - Practice proper ocular hygiene to help with styes. - Schedule blood work soon, ensuring a fasting state before the test.
[2025-02-05 10:38] VITALS: BP 112/68; PULSE 86; TEMP 36.3; O2SAT 96; BMI 25.5
== END 2025-02-05 11:32 | disposition home or self-care (01) ==
LOC: HO.HMCH 10:22
PROVIDERS: PCP Internal Medicine; Visit Provider Physician Assistant Medical
DX: Z00.00 Encounter for general adult medical examination without abnormal findings (principal); N95.1 Menopausal and female climacteric states; G47.00 Insomnia, unspecified; I49.9 Cardiac arrhythmia, unspecified; Z95.0 Presence of cardiac pacemaker; E66.3 Overweight

== ENCOUNTER → 2025-02-05 10:21 | Outpatient (BNVA) | payer OTHER, SELFPAY | PROVIDERS: PCP Internal Medicine; Visit Provider Physician Assistant Medical | DX: Z00.00 Encounter for general adult medical examination without abnormal findings (principal); N95.1 Menopausal and female climacteric states; G47.00 Insomnia, unspecified; I49.9 Cardiac arrhythmia, unspecified; E66.3 Overweight; Z68.25 Body mass index [BMI] 25.0-25.9, adult; Z95.0 Presence of cardiac pacemaker | CPT/HCPCS: 96127 ==

== ENCOUNTER 2025-02-20 06:59 | Outpatient (REF) | payer OTHER, SELFPAY ==
[2025-02-20 07:26] LABS: MANUAL DIFF FLAG NO
[2025-02-20 07:40] LABS: Basophils Percent Auto 0.4 % (0-2); Eosinophils Absolute Auto 0.3 X10*3/uL (0.0-0.4); Eosinophils Percent Auto 4.7 % (0-4); Hematocrit 41.7 % (37.0-47.0); Hemoglobin 14.4 g/dl (12.0-16.0); Imm Gran Abs Auto 0.02 X10*3/uL (0.00-0.03); Imm Gran Pct Auto 0.3 % (0.0-0.4); Lymphocytes Absolute Auto 2.5 X10*3/uL (1.2-4.9); Lymphocytes Percent Auto 36.6 % (20-40); Mean Corpuscular HGB Conc 34.5 g/dl (31.0-35.0); Mean Corpuscular Hemoglobin 30.4 pg (27.0-33.0); Mean Platelet Volume 10.4 fL (9.4-12.3); Monocytes Absolute Auto 0.6 X10*3/uL (0.1-1.2); Monocytes Percent Auto 9.3 % (2-11); Neutrophils Absolute Auto 3.3 x10*3/uL (2.0-8.3); Neutrophils Percent Auto 48.7 % (45-73); Platelet Count 331 X10*3/uL (160-400); Red Blood Count 4.74 X10*6/uL (4.20-5.50); Red Cell Distribution Width 11.6 % (11.0-16.0); White Blood Count 6.9 X10*3/uL (4.8-10.8)
[2025-02-20 07:47] LABS: Estimated Average Glucose 120 mg/dL; Hemoglobin A1C 143.8695 umol/L; Hemoglobin A1c % 5.8 % (<6.0)
[2025-02-20 08:26] LABS: Erythrocyte Sedimentation Rate 6 MM/HR (0-20)
[2025-02-20 08:31] LABS: Alanine Aminotransferase 26 U/L (0-31); Albumin Level 4.4 g/dL (3.5-5.0); Alkaline Phosphatase 82 U/L (39-117); Anion Gap 13 (12-20); Aspartate Amino Transferase 30 U/L (5-31); Bilirubin Direct 0.4 mg/dL (0.0-0.5); Bilirubin Total 1.4 mg/dL (0.0-1.0); Blood Urea Nitrogen 21 mg/dL (9-16); Calcium 9.8 mg/dL (8.4-10.2); Carbon Dioxide 26 mmol/L (22-29); Chloride 105 mmol/L (96-108); Cholesterol 179 mg/dL (<200); Estimated Glomerular Filt Rate > 60; Glucose Fasting 93 mg/dL (60-99); HDL Cholesterol 74 mg/dL (>40); LDL Cholesterol Calculated 90 mg/dL (<100); Magnesium 2.1 mg/dL (1.6-2.6); Potassium 3.7 mmol/L (3.3-5.1); Sodium 140 mmol/L (135-145); Total Protein 7.4 g/dL (6.5-8.0); Triglycerides 75 mg/dL (<150)
[2025-02-20 08:36] LABS: TSH reflex Free T4 2.07 uIU/mL (0.32-4.0); Vitamin D 25-OH Total 30.6 ng/mL (>30)
[2025-02-20 08:43] LABS: Vitamin B12 1067 pg/mL (200-900)
[2025-02-24 22:29] LABS: Estrogen 85 pg/mL
[2025-02-25 16:03] LABS: Testosterone, Total 22 ng/dL (2-45)
[2025-03-10 13:43] LABS: Progesterone 0.1 ng/mL
== END 2025-02-20 07:00 | disposition home or self-care (01) ==
LOC: HO.LAB 06:59
PROVIDERS: PCP Internal Medicine; Visit Provider Physician Assistant Medical
DX: Z00.00 Encounter for general adult medical examination without abnormal findings (principal); Z13.1 Encounter for screening for diabetes mellitus; Z13.6 Encounter for screening for cardiovascular disorders
CPT/HCPCS: 36415; 80053; 80061; 80076; 82248; 82306; 82607; 82672; 82746; 83036; 83735; 84144; 84146; 84403; 84443; 85025; 85652; 86140

== ENCOUNTER → 2025-03-23 23:59 | Outpatient (BNV) | payer OTHER, SELFPAY ==
--- NOTE | 2025-03-24 17:52 | MHC.OFFVIS ---
Intake Visit Reasons: Remote device check- Medtronic Allergies No Known Allergies Allergy (Verified 02/05/25 11:16) COUNTS INCLUDE 234 BEDS AT THE [facility] Medical History (Updated 02/05/25 @ 17:41 by Kiesha Lira PA-C) Overweight (BMI 25.0-29.9) Annual physical exam Cervical cancer screening Menopausal symptom History of mammogram (~01/21/25) Cardiac pacemaker in situ Menopausal syndrome Current smoker Familial hypercholesterolemia Insomnia, unspecified Surgical History H/O LEEP History of tubal ligation Family History Father No problems noted. Mother No problems noted. 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 Pacemaker function is adequate. Patient is ventricularly pacer dependent [id number] Cardiac Device Interrogation, pacemaker Procedure code (CPT) selection complete Assessment & Plan Assessment & Plan (1) Cardiac pacemaker in situ: Comment: Medtronic dual-chamber pacemaker placed, 02/23/2022 for symptomatic advanced AV block, left bundle-branch block pacing Code(s): Z95.0 - Presence of cardiac pacemaker Category: Medical Plan: See above Coding Level of Care Code Procedure Only Diagnoses Cardiac pacemaker in situ Z95.0 CPT Codes Cardiac Device Check - Cardiac Device 12: [id number] Cardiac Device Interrogation, pacemaker ([id number])
== END ==
PROVIDERS: PCP Internal Medicine; Visit Provider Internal Medicine Cardiovascular Disease
DX: I44.39 Other atrioventricular block (principal); Z95.0 Presence of cardiac pacemaker
CPT/HCPCS: 93294

== ENCOUNTER 2025-04-28 10:23 | Outpatient (AMB) | payer OTHER, SELFPAY ==
[2025-04-28 10:33] VITALS: BP 110/70; PULSE 80; BMI 26.0
--- NOTE | 2025-04-28 10:33 | A.OFFVIS_ITS ---
Vital Signs 04/28/25 10:33 Height 5 ft 5 in Weight 156 lb 8.451 oz BMI 26.0 BP 110/70 Blood Pressure Location Lt brachial Pulse 80 Intake Visit Reasons: 1 yr w/ ekg s/p echo Intake Note: 1year follow-up with ekg and Medtronic check after echo Exhibit Display Representative Required: No Allergies No Known Allergies Allergy (Verified 02/05/25 11:16) Medication List - Last Reconciled 04/28/25 by Balaji Cao MD mirtazapine (Remeron) 22.5 mg PO BEDTIME HPI Comments Details: Ladi comes for follow-up for annual follow-up for pacemaker. She has been doing well. She denies any exertional symptoms. No chest pain or shortness of breath with activity. 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 Denies any palpitation, lightheadedness, syncope. Denies any heart failure symptoms. Echocardiogram done with the last year had shown normal LV ejection fraction. [facility] Medical History (Updated 02/05/25 @ 17:41 by Kiesha Lira PA-C) Overweight (BMI 25.0-29.9) Annual physical exam Cervical cancer screening Menopausal symptom History of mammogram (~01/21/25) Cardiac pacemaker in situ Menopausal syndrome Current smoker Familial hypercholesterolemia Insomnia, unspecified Surgical History H/O LEEP History of tubal ligation Family History Father No problems noted. Mother No problems noted. 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 Cognitive needs: No Hearing needs: No Vision needs: Yes (glasses) Review of Systems Const Denies chills, Denies fatigue, Denies fever(s), Denies frequent falls, Denies weakness, Denies weight gain and Denies weight loss ENT Denies dizziness Card Denies chest pain, Denies leg edema, Denies lightheadedness, Denies palpitations, Denies dyspnea, Denies dyspnea on exertion, Denies orthopnea and Denies other (loss of consciousness) Resp Denies cough, Denies dyspnea and Denies dyspnea on exertion GI Denies hematochezia and Denies change in stool character Musc Denies abnormal gait, Denies muscle weakness, Denies numbness, Denies radiating pain into limb and Denies tingling Neuro Denies abnormal gait, Denies dizziness, Denies frequent falls, Denies numbness, Denies tingling and Denies weakness Endo Denies fatigue and Denies palpitations Physical Exam Vital Signs: Last Vital Signs Pulse 80 04/28/25 10:33 BP 110/70 04/28/25 10:33 BMI result Body Mass Index 26.0 Const General: cooperative, comfortable, no acute distress, alert and awake Nutritional Appearance: average body habitus Orientation/consciousness: patient oriented x3 Neck Neck: Yes trachea midline, Yes supple and Yes no JVD Resp Effort & Inspection: normal respiratory effort Auscultation: clear to auscultation bilaterally Cardio Jugular venous distension: no JVD Palpation: normal PMI Rate: regular rate Rhythm: regular rhythm Heart sounds: S1 normal heart sound present, S2 normal heart sound present, no click, no gallops, no murmurs and no rubs GI Auscultation: normal bowel sounds Skin General skin exam: no rashes or lesions noted Neuro General: patient oriented x3 and no focal motor deficits Extrem General: Yes no clubbing, cyanosis or edema Office Procedures Cardiac Device Check Cardiac Device Check Details: Dual-chamber Medtronic pacemaker in place programmed in DDD at 60 beats per minute. Ventricular pacing 99.4% time. Two episodes of high ventricular rate episode noted, only 1 of them suggestive of nonsustained VT, 5 beats. Atrial sensing is excellent. Ventricular sensing could not be checked. Atrial ventricular pacing thresholds adequate. Pacing lead impedance is stable. Battery life is at about 8 years [id number] Cardiac Device Check, pacemaker dual lead Procedure code (CPT) selection complete EKG Details: EKG shows atrially sensed, ventricularly paced rhythm with narrow QRS complex consistent with left bundle pacing [id number], Complete Assessment & Plan Assessment & Plan (1) Cardiac pacemaker in situ: Comment: Medtronic dual-chamber pacemaker placed, 02/23/2022 for symptomatic advanced AV block, left bundle-branch block pacing Code(s): Z95.0 - Presence of cardiac pacemaker Category: Medical Plan: Dual-chamber Medtronic pacemaker for complete heart block with a left bundle branch block pacing. Normal LV ejection fraction noted by last echocardiogram. No cardiac symptoms noted. Continue monitor remotely every 3 months. Follow up in the clinic in 1 year's time. (2) Cardiac arrhythmia: Code(s): I49.9 - Cardiac arrhythmia, unspecified Category: Medical Plan: Cardiac arrhythmias with nonsustained VT noted. Echocardiogram within last year within normal limits. She has no new symptoms at this point time. She had a cardiac MRI which is not suggest any evidence of infiltrative disorder such as cardiac sarcoidosis. Would avoid any medical therapy at this point time. Avoidance of stimulants was discussed. Will continue monitor remotely by pacer telemetry. Follow up in the clinic in 1 year's time, sooner p.r.n.. Thank you for allowing me to partake in her care Medications: Changed From mirtazapine (Remeron) 15 mg PO BEDTIME 90 tabs 1RF G47.00 - Insomnia, unspecified To mirtazapine (Remeron) 22.5 mg PO BEDTIME G47.00 - Insomnia, unspecified Coding Level of Care Code Est Pt Level 4 (28049) Complex EM visit Add On G2211 Diagnoses Cardiac pacemaker in situ Z95.0 Cardiac arrhythmia I49.9 CPT Codes Cardiac Device Check - Cardiac Device 2: [id number] Cardiac Device Check, pacemaker dual lead ([id number]) EKG - CPT: 25321-[id number], Complete ([id number])
== END 2025-04-28 10:57 | disposition home or self-care (01) ==
LOC: HO.HCS 10:24
PROVIDERS: PCP Internal Medicine; Visit Provider Internal Medicine Cardiovascular Disease
DX: I49.9 Cardiac arrhythmia, unspecified (principal); Z95.0 Presence of cardiac pacemaker
CPT/HCPCS: 93010; 93280; 99214

== ENCOUNTER → 2025-04-28 10:23 | Outpatient (BNVA) | payer OTHER, SELFPAY | PROVIDERS: PCP Internal Medicine; Visit Provider Internal Medicine Cardiovascular Disease | DX: Z45.010 Encounter for checking and testing of cardiac pacemaker pulse generator [battery] (principal); I49.9 Cardiac arrhythmia, unspecified | CPT/HCPCS: 93005; 93280 ==

== ENCOUNTER → 2025-06-22 23:59 | Outpatient (BNV) | payer OTHER, SELFPAY ==
--- NOTE | 2025-06-25 14:55 | A.OFFVIS_ITS ---
Intake Visit Reasons: Remote device check- Medtronic Allergies No Known Allergies Allergy (Verified 02/05/25 11:16) [facility] Medical History (Updated 02/05/25 @ 17:41 by Kiesha Lira PA-C) Overweight (BMI 25.0-29.9) Annual physical exam Cervical cancer screening Menopausal symptom History of mammogram (~01/21/25) Cardiac pacemaker in situ Menopausal syndrome Current smoker Familial hypercholesterolemia Insomnia, unspecified Surgical History H/O LEEP History of tubal ligation Family History Father No problems noted. Mother No problems noted. 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 Pacemaker function is adequate [id number] Cardiac Device Interrogation, pacemaker Procedure code (CPT) selection complete Assessment & Plan Assessment & Plan (1) Cardiac pacemaker in situ: Comment: Medtronic dual-chamber pacemaker placed, 02/23/2022 for symptomatic advanced AV block, left bundle-branch block pacing Code(s): Z95.0 - Presence of cardiac pacemaker Category: Medical Plan: See above Coding Level of Care Code Procedure Only Diagnoses Cardiac pacemaker in situ Z95.0 CPT Codes Cardiac Device Check - Cardiac Device 12: [id number] Cardiac Device Interrogation, pacemaker ([id number])
== END ==
PROVIDERS: PCP Internal Medicine; Visit Provider Internal Medicine Cardiovascular Disease
DX: I44.39 Other atrioventricular block (principal); Z95.0 Presence of cardiac pacemaker
CPT/HCPCS: 93294

== ENCOUNTER 2025-08-06 08:13 | Outpatient (REF) | payer OTHER, SELFPAY | END 2025-08-06 08:14 | disposition home or self-care (01) | LOC: HO.LNP 08:13 | PROVIDERS: PCP Internal Medicine; Visit Provider Advanced Practice Midwife | DX: Z01.419 Encounter for gynecological examination (general) (routine) without abnormal findings (principal); Z11.51 Encounter for screening for human papillomavirus (HPV) | CPT/HCPCS: 87626; 88175 ==

== ENCOUNTER 2025-08-06 08:13 | Outpatient (AMB) | payer OTHER, SELFPAY ==
--- NOTE | 2025-08-06 08:15 | A.OFFVIS_ITS ---
Vital Signs 08/06/25 08:16 Height 5 ft 5 in Weight 155 lb BMI 25.8 BP 120/82 Intake Visit Reasons: New patient annual Intake Note: pt c/o hotflashes and chronic UTI's after intercourse. 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 History of UTIs after intimacy, has not been treated in years by her PCP then subsequently by the urologist. Avoids intimacy due to this concern. Last treated in 2023 and 2019. Denies any vaginal dryness or irritation. STI testing offered; she declined. Attempting to eat a healthy diet with little calcium and vitamin D and stays active with exercise. Last pap smear; years ago, negative. LEEP procedure approximately 1984. Last mammogram; 2024. Colonoscopy is UTD. Denies any family history of breast, ovarian or colon cancer. [facility] Medical History Overweight (BMI 25.0-29.9) Annual physical exam Cervical cancer screening Menopausal symptom History of mammogram (~01/21/25) Cardiac pacemaker in situ Menopausal syndrome Current smoker Familial hypercholesterolemia Insomnia, unspecified Surgical History H/O LEEP History of tubal ligation Family History Father No problems noted. Mother No problems noted. 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 Cognitive needs: No Hearing needs: No Vision needs: Yes (glasses) Female Reproductive History Menstrual Total pregnancies: 5 Full term: 4 Number of Living Children: 4 Ab spontaneous: 1 Date of Mammogram: 01/21/25 (Birad 2) Review of Systems Const All systems reviewed & are unremarkable except as noted in HPI and below Reports as per HPI Eyes Reports no additional complaints ENT Reports no additional complaints Card Reports no additional complaints Resp Reports no additional complaints GI Reports as per HPI and Reports no additional complaints Reports as per HPI Musc Reports no additional complaints Skin/Breast Reports as per HPI Neuro Reports no additional complaints Psych Reports no additional complaints Endo Reports no additional complaints Krishan/Lymph Reports no additional complaints Aller/Immun Reports no additional complaints Physical Exam Vital Signs: Last Vital Signs BP 120/82 08/06/25 08:16 BMI result Body Mass Index 25.8 Const General: cooperative, healthy appearing, no acute distress, well developed and alert Orientation/consciousness: patient oriented x3 HEENT Head: Yes normal to inspection Eyes General: appearance normal, both eyes and all related structures Neck Neck: Yes normal visual inspection Thyroid: Thyroid normal Chest Chest palpation & inspection: normal inspection of the chest and other (no puckering, dimpling, peau de orange, retraction, discharge, masses) Breast/axilla inspection: normal inspection of the breasts Breast/axilla palpation: normal palpation of the breasts Resp Effort & Inspection: normal respiratory effort GI Inspection: Yes normal to inspection Palpation (GI): Soft to palpation Rectal Exam - Female: deferred General: Yes bladder normal to palpation External Female Exam: normal external appearance and normal appearance of the urethra Speculum Exam - Vagina: normal appearance of the vagina, normal palpation, normal vaginal discharge and vagina atrophic Speculum Exam - Cervix: normal appearance of the cervix, normal palpation and Other cervical findings present (atrophic, bled slightly w/pap) Bimanual exam- vagina & uterus: normal bimanual exam, normal palpation, uterine size normal, bladder normal to palpation, normal palpation and non-tender Bimanual Exam- Adnexa, other: no masses Skin General skin exam: no rashes or lesions noted Rashes: no rashes Neuro General: patient oriented x3 Cognition (Neuro): normal cognition Extrem General: Yes normal to inspection Psych Attitude: cooperative Thought process: Normal thought process present Assessment & Plan Assessment & Plan (1) Encounter for well woman exam with routine gynecological exam: Code(s): Z01.419 - Encounter for gynecological examination (general) (routine) without abnormal findings Category: Medical Plan: Discussed: Current recommendations for pap smears per ASCCP guidelines. Breast awareness, periodic self breast exams and yearly mammogram. Maintain a healthy lifestyle, well balanced diet including Calcium 1,200 mg and Vitamin D 600 IU daily, and routine exercise. Contact the office with any postmenopausal bleeding. Patient verbalizes understanding and agrees to the plan of care. She was given opportunity to ask questions and all questions were answered to the best of my ability. RTO in 1 year for annual photography assistant exam. This note is constructed using voice recognition software. While every effort has been made to ensure accuracy, workforce staffing advisor errors may have been included. (2) Hot flashes: Code(s): R23.2 - Flushing Plan Discussed: Atrophic findings on exam. Menopausal concerns, provided information and handouts, advised patient to consider topical use of Estrace for the benefits of GSM versus utilizing antibiotics routinely at this time. Additional dietary, exercise and calcium intake handouts provided. Follow up if would like to consider prescribed therapy. The patient expressed understanding and agreement with the plan of care. Risks benefits of medications reviewed All of her questions and concerns were addressed to the best of my ability. Orders: Orders HPV High risk Today Z01.419 - Encounter for gynecological examination (general) (routine) without abnormal findings Pap Smear Today Z01.419 - Encounter for gynecological examination (general) (routine) without abnormal findings Coding Level of Care Code New Pt Prev Care 40-64y(45887) Diagnoses Encounter for well woman exam with routine gynecological exam Z01.419 Hot flashes R23.2
[2025-08-06 08:16] VITALS: BP 120/82; BMI 25.8
== END 2025-08-06 08:56 | disposition home or self-care (01) ==
LOC: HO.HWS 08:14
PROVIDERS: PCP Internal Medicine; Visit Provider Advanced Practice Midwife
DX: Z01.419 Encounter for gynecological examination (general) (routine) without abnormal findings (principal); R23.2 Flushing
CPT/HCPCS: 99386; 99459

== ENCOUNTER 2025-08-20 09:10 | Outpatient (AMB) | payer OTHER, SELFPAY ==
[2025-08-20 09:20] VITALS: BP 123/61; PULSE 88; RESP 14; TEMP 36.4; O2SAT 96; BMI 26.1
--- NOTE | 2025-08-20 09:20 | A.OFFPC_ITS ---
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 She reports her primary concern is insomnia, for which she was prescribed hydroxyzine. Initially, a 50 mg dose was too sedating, and a psychiatrist changed it to 10 mg, which was effective for a time; however, she has developed a tolerance and reports taking 40 mg recently with no effect, resulting in poor sleep. She denies any hangover symptoms from the medication. Recent lab work was reviewed, showing a mildly elevated vitamin B12 level and a mildly elevated liver enzyme. Other labs, including kidney function, electroly christiano, inflammatory markers, and a complete blood count, were all within normal limits, and she is not diabetic. The patient's past medical history includes a pacemaker placement. She recently had a gynecological exam which was normal. She has received a flu shot and discussed pneumococcal, RSV, and shingles vaccinations. 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 - Diet: Reports taking multivitamins and eating a lot of broccoli. [facility]LY [facility] Medical History (Updated 08/20/25 @ 10:03 by Kiesha Lira PA-C) Healthcare maintenance Elevated liver enzymes Elevated vitamin B12 level Overweight (BMI 25.0-29.9) Annual physical exam Cervical cancer screening Menopausal symptom History of mammogram (~01/21/25) Cardiac pacemaker in situ Menopausal syndrome Current smoker Familial hypercholesterolemia Insomnia, unspecified Surgical History H/O LEEP History of tubal ligation Family History Father No problems noted. Mother No problems noted. Sister Breast cancer Bone cancer Social History Housing: House Alcohol intake: never Patient Tobacco Use Status: Former Tobacco user e-Cigarette/Vaping Use: Never Used Second Hand Smoke Exposure: Yes service: No Current occupational status: employed Cognitive needs: No Hearing needs: No Vision needs: Yes (glasses) Questionnaire PHQ-9 Over the last 2 weeks, how often have you been bothered by any of the following problems? 1. Little interest or pleasure in doing things: not at all 2. Feeling down, depressed, or hopeless: not at all 3. Trouble falling or staying asleep, or sleeping too much: more than half the days 4. Feeling tired or having little energy: several days 5. Poor appetite or overeating: not at all 6. Feeling bad about yourself - or that you are a failure or have let yourself or your family down: not at all 7. Trouble concentrating on things, such as reading the newspaper or watching television: not at all 8. Moving or speaking so slowly that other people could have noticed. Or the opposite - being so fidgety or restless that you have been moving around a lot more than usual: not at all 9. Thoughts that you would be better off or of hurting yourself in some way: not at all Total score: 3 Depression Screening Interpretation: Positive Depression Screening Follow-up: New Medication prescribed Depression Screening Done: Yes 29112 - PHQ-9 Billing: Yes Source: Developed by Drs. Nam Singh, Magaly Grajeda, Bob John and colleagues, with an educational mirna from [facility]. Thrive Questionnaire Date Thrive assessed: 01/29/25 I am a: Patient What is your living situation today?: I have a steady place to live Within the past 12 months, did the food you bought not last and you didn't have the money to get more?: Never true Within the past 12 months, did you worry whether your food would run out before you got money to buy more?: Never true Do you have trouble paying for medicines?: No Do you have trouble getting transportation to medical appointments?: No Do you have trouble paying your heating and electricity bill?: No Do you have trouble taking care of your child, family member or friend?: No Do you have trouble with day-to-day activities such as bathing, preparing meals, shopping, managing finances, etc.?: No Are you currently unemployed and looking for a job?: No Are you interested in more education?: No Please select the resources that you would like help with: None Currently or been in a relationship where the following occur: No concerns reported THRIVE Score: 0 AUDIT C Alcohol Use Questionnaire (AUDIT-C) 1. How often do you have a drink containing alcohol?: Never 3. How often do you have six or more drinks on one occasion?: Never Total Score: 0 Score Reviewed/Action Taken: No GABE-7 AMB Questionnaire GABE-7 Date GABE - 7 assessed: 02/05/25 Feeling nervous, anxious, or on edge: 1 = Several days Not being able to stop or control worryin = Several days Worrying too much about different things: 2 = More than half the days Trouble relaxin = Nearly every day Being so restless that it is hard to sit still: 0 = Not at all Becoming easily annoyed or irritable: 0 = Not at all Feeling afraid as if something awful might happen: 1 = Several days Total GABE-7 score (0-4 normal; 5-9 mild; 10-14 moderate; 15-21 severe): 8 Source: Developed by Drs. Nam Singh, Magaly Grajeda, Bob John and colleagues, with an educational mirna from [facility]. GABE-7 Assessment Billing GABE-7 Assessment Tool: GABE-7 Assessment 03961 Review of Systems Const Details: - Neurological/Psychiatric: Reports insomnia. - Constitutional: Reports feeling unwell due to lack of sleep. All systems reviewed & are unremarkable except as noted in HPI and below Physical exam (Primary Care) Vital Signs: Last Vital Signs Temp 97.6 F 08/20/25 09:20 Pulse 88 08/20/25 09:20 Resp 14 08/20/25 09:20 BP 123/61 08/20/25 09:20 Pulse Ox 96 08/20/25 09:20 Oxygen Delivery Method Room Air 08/20/25 09:20 Care Plan Goal for BP management: <140/90 at Goal BMI result Body Mass Index 26.1 BMI Assessment/Plan discussion: High BMI High, discussed plan: lifestyle, weight reduction, dietary, physical activity, alcohol moderation and other Tobacco/Smoking Status: Tobacco use Status Tobacco use date assessed 08/20/25 08/20/25 09:27 Patient Tobacco Use Status Former Tobacco user 08/20/25 09:27 e-Cigarette/Vaping Use Never Used 08/20/25 09:27 PHQ-9: PHQ-9 Score PHQ-9: Total score 3 08/20/25 09:34 Depression Screening Interpretation: Positive Depression Screening Follow-up: New Medication prescribed Thrive Assessment: Date of Thrive Assessment Date Thrive assessed 01/29/25 08/20/25 09:27 Currently or been in a relationship where the following occur: No concerns reported Const Other: Appearance: Alert. Oriented X3. No acute distress. Head: Normal external exam. Normocephalic. Atraumatic. Eyes: Pupils are equal, round, and reactive to light. Extraocular movements intact. Conjunctiva and sclera normal. Eyelids normal. Throat: Pharynx normal. Uvula midline. Moist mucous membranes. Neck: Normal inspection. Neck supple. Full range of motion. Cardiovascular: Normal heart rate and rhythm. Respiratory: No respiratory distress. Painless inspiration. Back: Full range of motion noted. Skin: Skin warm and dry. Normal skin color. Extremities: Extremities exhibit normal range of motion. Results Reviewed Results Reviewed: - Labs: - Vitamin B12: Mildly elevated, 67 points above the normal range. - Liver Function Tests: One liver enzyme was mildly elevated; all other LFTs were normal. - Basic Metabolic Panel: Kidney function, potassium, and sodium levels are normal. - Inflammatory Markers: Normal. - Complete Blood Count: Normal; the patient is not anemic, and platelet and white blood cell counts are normal. - Glucose: Normal; the patient is not diabetic. Coding Level of Care Code Est Pt Level 4 (19835) Complex EM visit Add On G2211 Diagnoses Insomnia, unspecified G47.00 Elevated vitamin B12 level R74.8 Elevated liver enzymes R74.8 Healthcare maintenance Z00.00 Additional Codes GABE-7 Assessment Billing - GABE-7 Assessment Tool: GABE-7 Assessment 28564 ([id number]) PHQ-9 - 03095 - PHQ-9 Billing: Yes ([id number]) Assessment & Plan Assessment & Plan (1) Insomnia, unspecified: Code(s): G47.00 - Insomnia, unspecified Category: Medical Plan: The patient reports developing tolerance to hydroxyzine 10 mg for insomnia, stating a recent 40 mg dose was ineffective. A prescription for hydroxyzine will be sent to the pharmacy. (2) Elevated vitamin B12 level: Code(s): R74.8 - Abnormal levels of other serum enzymes Category: Medical Plan: The patient's vitamin B12 was noted to be mildly elevated, likely secondary to her multivitamin supplement. Advised the patient to take her multivitamin every other day. The level will be rechecked with future lab work. (3) Elevated liver enzymes: Code(s): R74.8 - Abnormal levels of other serum enzymes Category: Medical Plan: Lab results show one mildly elevated liver enzyme, with all other liver function tests being normal. This will be monitored with repeat labs in the future. (4) Healthcare maintenance: Code(s): Z00.00 - Encounter for general adult medical examination without abnormal findings Category: Medical Plan: Preventative care was discussed, including recommendations for the pneumococcal and shingles vaccinations. The patient was informed that the RSV vaccine is not available in the clinic. A follow-up visit for an annual physical is scheduled for six months, and lab work will be ordered prior to that appointment. Will assist the patient in changing her existing scheduled appointment to be with me. Plan Plan Patient was informed and verbally consented to the use of an ambient scribe for clinic note documentation during this visit. 1. Insomnia The patient reports developing tolerance to hydroxyzine 10 mg for insomnia, stating a recent 40 mg dose was ineffective. A prescription for hydroxyzine will be sent to the pharmacy. 2. Elevated Vitamin B12 Level The patient's vitamin B12 was noted to be mildly elevated, likely secondary to her multivitamin supplement. Advised the patient to take her multivitamin every other day. The level will be rechecked with future lab work. 3. Elevated Liver Enzymes Lab results show one mildly elevated liver enzyme, with all other liver function tests being normal. This will be monitored with repeat labs in the future. 4. Health Maintenance Preventative care was discussed, including recommendations for the pneumococcal and shingles vaccinations. The patient was informed that the RSV vaccine is not available in the clinic. A follow-up visit for an annual physical is scheduled for six months, and lab work will be ordered prior to that appointment. Will assist the patient in changing her existing scheduled appointment to be with me. I reviewed the patient's recent lab results with her, which were mostly normal. We discussed the mildly elevated vitamin B12, likely due to her multivitamin, and I advised her to take it every other day. We also noted a single, mildly elevated liver enzyme, which we will monitor. We addressed her primary concern of worsening insomnia and the decreased efficacy of her current hydroxyzine do se, and I sent a new prescription. We discussed preventative vaccinations, including pneumococcal and shingles, and I advised her that the RSV vaccine is not available in our clinic. I recommended she follow up in six months for her annual physical, and we will arrange for pre-visit lab work. Medications: New hydroxyzine HCl 50 mg PO BEDTIME 90 tabs 3RF insomnia Patient Instructions: - Take your multivitamin every other day instead of every day. - A prescription for your sleep medication has been sent to your pharmacy. - It is recommended that you get the pneumonia (pneumococcal) and shingles vaccines. - The RSV vaccine is not currently available in this clinic. - We will order new blood work for you to complete before your next physical exam. - Please have the hotel front desk agent staff help you switch your next annual appointment so it is scheduled with me. - Please schedule a follow-up appointment in six months for your annual physical.
== END 2025-08-20 09:59 | disposition home or self-care (01) ==
LOC: HO.HMCSH 09:10
PROVIDERS: PCP Physician Assistant Medical; Visit Provider Physician Assistant Medical
DX: G47.00 Insomnia, unspecified (principal); R74.8 Abnormal levels of other serum enzymes; Z00.00 Encounter for general adult medical examination without abnormal findings

== ENCOUNTER → 2025-08-20 09:10 | Outpatient (BNVA) | payer OTHER, SELFPAY | PROVIDERS: PCP Physician Assistant Medical; Visit Provider Physician Assistant Medical | DX: Z00.00 Encounter for general adult medical examination without abnormal findings (principal); R74.8 Abnormal levels of other serum enzymes; G47.00 Insomnia, unspecified | CPT/HCPCS: 96127 ==

== ENCOUNTER → 2025-09-30 15:20 | Outpatient (BNV) | payer OTHER, SELFPAY | PROVIDERS: PCP Physician Assistant Medical; Visit Provider Internal Medicine Cardiovascular Disease | DX: I44.39 Other atrioventricular block (principal) | CPT/HCPCS: 93294 ==